=== PATIENT | female | born 1975 | race Caucasian/White ===

== ENCOUNTER 2017-01-03 16:19 | Emergency (ER) | payer OTHER ==
[2017-01-03 16:23] VITALS: TEMP 98.5; BMI 32.8
--- NOTE | 2017-01-03 17:02 | PDOC ---
Attending Attestation - Resident Resident Name: Deshaun Anders - ED Attending Attestation I have performed the following: I have examined & evaluated the patient, The case was reviewed & discussed with the resident, I agree w/resident's findings & plan, Exceptions are as noted - HPI HPI: 01/05/17 02:26 41 yo female p/w headache. she has a h/o headaches - Physicial Exam PE: 01/05/17 02:26 wnwd 41 yo female in no acute distresss, has c/o frontal headache HEENT wnl neck supple lungs cta b/l cvs [id number] abd protuberant,soft neuro axox3,ambulatory cn2-12 grossly intact,motor strength 5/5 - Medical Decision Making 01/05/17 02:28 pt's symptoms resolved and she was referred to neurology
[2017-01-03] MEDS ORDERED: SODIUM CHLORIDE 1,000 ML IV STA (17:30)
[2017-01-03] MEDS ORDERED: diphenhydrAMINE HCL 12.5 MG/5 ML UNIT-DOSE CUPS PO ONE (17:32)
[2017-01-03] MEDS ORDERED: METOCLOPRAMIDE HCL 10 MG TABLET (FP) PO ONE (17:32)
[2017-01-03] MEDS ORDERED: METOCLOPRAMIDE HCL INJECTION 10 MG/2 ML VIAL IVPUSH ONE (17:38)
[2017-01-03] MEDS ORDERED: METOCLOPRAMIDE HCL INJECTION 10 MG/2 ML VIAL ONE (17:47)
[2017-01-03 18:17] LABS: BASOPHIL 0.2 % (0-2.0); EOSINOPHIL 0.4 % (0-4.5); MCH 29.2 pg (25.7-33.7); MCHC 33.9 g/dl (32.0-36.0); MEAN CELL VOLUME 86.1 fl (80-96); NEUTROPHILS 63.6 % (42.8-82.8); PLATELET COUNT 312 K/MM3 (134-434); RDW 13.1 % (11.6-15.6); WHITE BLOOD COUNT 9.4 K/mm3 (4.0-10.0)
[2017-01-03 18:57] LABS: ALBUMIN 3.9 g/dl (3.4-5.0); ANION GAP 12 (8-16); CALCIUM 8.7 mg/dL (8.5-10.1); CO2 25 mmol/L (21-32); CREATININE 0.6 mg/dL (0.55-1.02); GLUCOSE,RANDOM 91 mg/dL (74-106); SGPT/ALT 35 U/L (12-78)
[2017-01-03 18:58] LABS: ALK PHOS 81 U/L (45-117); BILIRUBIN,TOTAL 0.6 mg/dL (0.2-1.0); TOT PROT 7.9 g/dl (6.4-8.2)
[2017-01-03 19:15] LABS: SGOT/AST 34 U/L (15-37)
--- NOTE | 2017-01-03 19:29 | PDOC ---
History of Present Illness - General Chief Complaint: Pain Stated Complaint: NAUSEA/VOMITING Time Seen by Provider: 01/03/17 16:53 - History of Present Illness Initial Comments: 01/03/17 19:29 41 yo F with h/o HTN, Depression, Anxiety, GERD, and migraines, who presents with CHAMBERLAIN. Pt. reports worsening frontal, bi-temporal, pulsating CHAMBERLAIN of 7/10 severity beginning (01/01). CHAMBERLAIN stable throughout day, gradual in onset, similar to CHAMBERLAIN's in past, and not severe at onset. Asx. with scintillating scotomas, and photophobia. She endorses 10 episodes of non bilious and non bloody emesis over past 48 hours. Denies neck stiffness, phonophobia, aura, weakness, sensory change, abdominal pain, constipation, diarrhea, blood per rectum, chest pain, SOB, fevers/chills. Pain not controlled with Tylenol or NSAID, but has been successful in aborting CHAMBERLAIN's in the past. Denies Caffeine use. Past History - Past Medical History Allergies/Adverse Reactions: Allergies Allergy/AdvReac Type Severity Reaction Status Date / Time No Known Allergies Allergy Unverified 01/03/17 16:23 Home Medications: Ambulatory Orders Albuterol Sulfate Inhaler - [Ventolin HFA Inhaler -] 1 - 2 inh PO QID PRN Citalopram Hydrobromide [Citalopram HBr] 10 mg PO DAILY 04/21/15 Clonazepam [Klonopin] 1 mg PO DAILY 04/21/15 Omeprazole [Prilosec (RX)] 40 mg PO DAILY 04/21/15 Quetiapine Fumarate [Seroquel -] 25 mg PO HS 04/21/15 Rizatriptan Benzoate [Rizatriptan] 1 tab PO DAILY 04/21/15 Sertraline HCl [Zoloft -] 100 mg PO DAILY 04/21/15 Anemia: No Asthma: No Cancer: No Cardiac Disorders: No CVA: No COPD: No CHF: No Dementia: No Diabetes: No GI Disorders: Yes (H.PYLORI,GERD,ABDOMINAL PAIN) Disorders: No HTN: No Hypercholesterolemia: No Liver Disease: No Psychiatric Problems: Yes (Anxiety,Depression) Seizures: No Thyroid Disease: No - Surgical History Abdominal Surgery: No Appendectomy: No Cardiac Surgery: No Cholecystectomy: No Lung Surgery: No Neurologic Surgery: No Orthopedic Surgery: No - Suicide/Smoking/Psychosocial Hx Smoking History: Never smoked Information on smoking cessation initiated: No Hx Alcohol Use: No Drug/Substance Use Hx: No Substance Use Type: None Hx Substance Use Treatment: No *Physical Exam - Vital Signs Last Vital Signs Temp Pulse Resp BP Pulse Ox 98.5 F 83 17 128/90 100 01/03/17 16:22 01/03/17 16:22 01/03/17 16:22 01/03/17 16:22 01/03/17 16:22 - Physical Exam Comments: 01/03/17 20:42 GENERAL: Awake, alert, and fully oriented, in no acute distress HEAD: No signs of trauma, normocephalic, atraumatic EYES: PERRLA, EOMI, sclera anicteric, conjunctiva clear ENT: Auricles normal inspection, hearing grossly normal, nares patent, oropharynx clear without exudates. Moist mucosa NECK: Normal ROM, supple, no lymphadenopathy, JVD, or masses LUNGS: No distress, speaks full sentences, clear to auscultation bilaterally HEART: Regular rate and rhythm, normal S1 and S2, no murmurs, rubs or gallops, peripheral pulses normal and equal bilaterally. ABDOMEN: Soft, nontender, normoactive bowel sounds. No guarding, no rebound. No masses EXTREMITIES : Normal inspection, Normal range of motion, no edema. No clubbing or cyanosis. NEUROLOGICAL: Cranial nerves II through XII grossly intact. Normal speech, normal gait, no focal sensorimotor deficits SKIN: Warm, Dry, normal turgor, no rashes or lesions noted. ED Treatment Course - LABORATORY CBC & Chemistry Diagram: 01/03/17 18:10 01/03/17 18:10 - ADDITIONAL ORDERS Additional order review: Laboratory Results 01/03/17 18:10 Sodium 141 Potassium 4.3 Chloride 104 Carbon Dioxide 25 Anion Gap 12 BUN 12 Creatinine 0.6 D Creat Clearance w eGFR > 60 Random Glucose 91 Calcium 8.7 Total Bilirubin 0.6 AST 34 D ALT 35 Alkaline Phosphatase 81 Total Protein 7.9 Albumin 3.9 01/03/17 18:10 RBC 4.83 MCV 86.1 MCHC 33.9 RDW 13.1 MPV 8.0 Neutrophils % 63.6 Lymphocytes % 30.1 Monocytes % 5.7 Eosinophils % 0.4 Basophils % 0.2 - Medications Given in the ED: ED Medications Discontinued Medications Generic Name Dose Route Start Last Admin Trade Name Marcus PRN Reason Stop Dose Admin Diphenhydramine HCl 25 mg 01/03/17 17:32 01/03/17 17:51 Benadryl Oral Solution - PO 01/03/17 17:33 Not Given ONCE ONE Diphenhydramine HCl 25 mg 01/03/17 17:38 01/03/17 17:51 Benadryl Injection - IVPB 01/03/17 17:39 25 mg ONCE ONE Administration Sodium Chloride 1,000 mls @ 1,000 mls/hr 01/03/17 17:30 01/03/17 17:50 Normal Saline - IV 01/03/17 18:29 1,000 mls/hr ASDIR STA Administration Metoclopramide HCl 10 mg 01/03/17 17:32 01/03/17 17:51 Reglan - PO 01/03/17 17:33 Not Given ONCE ONE Metoclopramide HCl 10 mg 01/03/17 17:38 01/03/17 17:51 Reglan Injection - IVPUSH 01/03/17 17:39 10 mg ONCE ONE Administration Medical Decision Making - Medical Decision Making 01/03/17 20:42 41 yo F with h/o HTN, Depression, Anxiety, GERD, and migraines, who presents with worsening frontal, bi-temporal, pulsating CHAMBERLAIN of 7/10 severity beginning ( 01/01). CHAMBERLAIN stable throughout day, gradual in onset, similar to CHAMBERLAIN's in past, and not severe at onset. Asx. with scintillating scotomas, photophobia, and non bilious / non bloody emesis over past 48 hours. Pain refractory to OTC analgesia and physical exam benign. DDx: Migraine without aura, Tension type CHAMBERLAIN, GERD ED Course: CBC, CMP, Lipase Metoclopramide 10 mg IVPB 1 L NS IVPB Diphenhydramine 25 mg IVPB 01/03/17 20:47 CBC, CMP, Lipase: Unremarkable Pt. reassessed and symptoms improved following medication and dark room isolation Pt. counseled on migraine tx. and prevention and told to follow up with Dr. Ridley Neurology outpatient for migraine therapy and prophylaxis. 01/03/17 20:49 *DC/Admit/Observation/Transfer Diagnosis at time of Disposition: Migraine without aura and responsive to treatment - Discharge Dispostion Disposition: HOME Condition at time of disposition: Improved Admit: No - Referrals Referrals: STAFF,NOT ON [Primary Care Provider] - Ilan Ridley DO [Staff Physician] - - Patient Instructions Printed Discharge Instructions: Migraine -- Adult, DI for Migraine, Migraine Headaches (Alternative Therapy) Additional Instructions: Please return to ED if you experience weakness, change in sensation, slurred speech, worsening headache, fevers/chills, or worsening symtpoms. Take over the counter acetaminophen and NSAID as tolerated. Please follow up with Dr. Ridley Neurology this week. Print Language: AUSTRALIAN - Attestations Physician Attestion: 01/03/17 20:06 I attest to the provided information
[2017-01-03 20:17] VITALS: BP 125/75; PULSE 90
== END 2017-01-03 20:27 | disposition home or self-care (01) ==
LOC: JER 16:19
PROC: 3E0337Z Introduction of Electrolytic and Water Balance Substance into Peripheral Vein, Percutaneous Approach (ICD-10-PCS; principal; 2017-01-03)
PROC: 3E033GC Introduction of Other Therapeutic Substance into Peripheral Vein, Percutaneous Approach (ICD-10-PCS; 2017-01-03)
DX: G43.909 Migraine, unspecified, not intractable, without status migrainosus (principal); I10 Essential (primary) hypertension; F41.8 Other specified anxiety disorders; K21.9 Gastro-esophageal reflux disease without esophagitis
CPT/HCPCS: 36415; 80053; 83690; 85025; 96361; 96374; 96375; 99282-25

== ENCOUNTER 2017-07-13 14:17 | Emergency (ER) | payer OTHER ==
--- NOTE | 2017-07-13 14:19 | PDOC ---
Rapid Medical Evaluation Time Seen by Provider: 07/13/17 14:19 Medical Evaluation: Allergies Allergy/AdvReac Type Severity Reaction Status Date / Time No Known Allergies Allergy Verified 07/13/17 14:19 07/13/17 14:19 42 year old female with migraines and depression presents with vomiting, dizziness, and headache since yesterday. No visual or focal neurologic symptoms. Symptoms typical of prior migraines. Normally takes Advil and something else rx, cannot recall name. V/s notable for HR 125 T 99.3 orally, however suspect fever as patient keeps complaining of feeling cold Plan: -Labs including CBC, CMP -UA/urine -IV fluids -CXR -Zofran 4mg IVPB (dry heaving during exam) -Consider rectal temp/sepsis workup -To Main ED for further evaluation
[2017-07-13] MEDS ORDERED: SODIUM CHLORIDE 1,000 ML IV STA (14:22)
[2017-07-13] MEDS ORDERED: ONDANSETRON 4 MG/2 ML VIAL IVPUSH ONE (14:22)
[2017-07-13 14:29] VITALS: BMI 35.2
--- NOTE | 2017-07-13 14:50 | PDOC ---
History of Present Illness - General History Source: Patient Exam Limitations: No Limitations - History of Present Illness Initial Comments: 07/13/17 16:22 The patient is a 42 year old female, with a significant past medical history of GERD, H.pylori, migraines, anxiety, and depression, who presents to the emergency department with abdominal pain, nausea, vomiting, and diarrhea since yesterday evening. The patient reports multiple episodes of (nonbloody/ nonbilious) vomiting since last night and associated diarrhea, but denies any constipation, melena, or hematochezia. She reports associated epigastric abdominal pain, nonradiating, which she rates a 5/10. She reports associated headache and dizziness, but denies any photophobia, tinnitus, recent fever, chills, or cough. She denies any chest pain, shortness of breath, diaphoresis, or palpitations. She denies any recent dysuria, hematuria, frequency, or urgency. She denies any recent travel or sick contacts. Allergies: NKDA Past Surgical History: Bilateral Salpingectomy Social History: Non smoker. No ETOH or recreational drug use. <Ton Montoya - Last Filed: 07/13/17 18:12> <Stefanie Delgado - Last Filed: 07/13/17 18:43> - General Stated Complaint: VOMITING Time Seen by Provider: 07/13/17 14:19 Past History <Ton Montoya - Last Filed: 07/13/17 18:12> - Past Medical History Anemia: No Asthma: No Cancer: No Cardiac Disorders: No CVA: No COPD: No CHF: No Dementia: No Diabetes: No GI Disorders: Yes (H.PYLORI,GERD,ABDOMINAL PAIN) Disorders: No HTN: No Hypercholesterolemia: No Liver Disease: No Psychiatric Problems: Yes (Anxiety,Depression) Seizures: No Thyroid Disease: No - Surgical History Abdominal Surgery: No Appendectomy: No Cardiac Surgery: No Cholecystectomy: No Lung Surgery: No Neurologic Surgery: No Orthopedic Surgery: No - Suicide/Smoking/Psychosocial Hx Smoking History: Never smoked Have you smoked in the past 12 months: No Information on smoking cessation initiated: No Hx Alcohol Use: No Drug/Substance Use Hx: No Substance Use Type: None Hx Substance Use Treatment: No <Stefanie Delgado - Last Filed: 07/13/17 18:43> - Past Medical History Allergies/Adverse Reactions: Allergies Allergy/AdvReac Type Severity Reaction Status Date / Time No Known Allergies Allergy Verified 07/13/17 14:19 Home Medications: Ambulatory Orders Albuterol Sulfate Inhaler - [Ventolin HFA Inhaler -] 1 - 2 inh PO QID PRN Citalopram Hydrobromide [Citalopram HBr] 10 mg PO DAILY 04/21/15 Clonazepam [Klonopin] 1 mg PO DAILY 04/21/15 Omeprazole [Prilosec (RX)] 40 mg PO DAILY 04/21/15 Quetiapine Fumarate [Seroquel -] 25 mg PO HS 04/21/15 Rizatriptan Benzoate [Rizatriptan] 1 tab PO DAILY 04/21/15 Sertraline HCl [Zoloft -] 100 mg PO DAILY 04/21/15 Acetaminophen/Caffeine/Butalb [Fioricet -] 1 tab PO TID PRN #15 tablet MDD 3 05/01 Ondansetron HCl [Zofran] 4 mg PO BID PRN #12 tablet 07/13/17 Review of Systems - Review of Systems Able to Perform ROS?: Yes Comments:: 07/13/17 16:22 GENERAL/CONSTITUTIONAL: No fever or chills. No weakness. HEAD, EYES, EARS, NOSE AND THROAT: No change in vision. No ear pain or discharge. No sore throat. CARDIOVASCULAR: No chest pain or shortness of breath. RESPIRATORY: No cough, wheezing, or hemoptysis. GASTROINTESTINAL: No nausea, vomiting, diarrhea or constipation. GENITOURINARY: No dysuria, frequency, or change in urination. MUSCULOSKELETAL: No joint or muscle swelling or pain. No neck or back pain. SKIN: No rash NEUROLOGIC: No headache, vertigo, loss of consciousness, or change in strength/ sensation. ENDOCRINE: No increased thirst. No abnormal weight change. HEMATOLOGIC/LYMPHATIC: No anemia, easy bleeding, or history of blood clots. ALLERGIC/IMMUNOLOGIC: No hives or skin allergy. <JanGiomilsy - Last Filed: 07/13/17 18:12> *Physical Exam - Vital Signs Last Vital Signs Temp Pulse Resp BP Pulse Ox 99.3 F 125 H 18 107/68 98 07/13/17 14:20 07/13/17 14:20 07/13/17 14:20 07/13/17 14:20 07/13/17 14:20 - Physical Exam Comments: 07/13/17 16:22 GENERAL: The patient is in no acute distress. HEAD: Normal with no signs of trauma. EYES: PERRLA, EOMI, sclera anicteric, conjunctiva clear. ENT: Ears normal, nares patent, oropharynx clear without exudates. Moist mucous membranes. NECK: Normal range of motion, supple without lymphadenopathy, JVD, or masses. LUNGS: Breath sounds equal, clear to auscultation bilaterally. No wheezes, and no crackles. HEART: +Tachycardic. Regular rhythm, normal S1 and S2 without murmur, rub or gallop. ABDOMEN: +Epigastric tenderness. Soft, normoactive bowel sounds. No guarding, no rebound. No masses palpable. EXTREMITIES: Normal range of motion, no edema. No clubbing or cyanosis. No erythema, or tenderness. NEUROLOGICAL: Cranial nerves II through XII grossly intact. Normal speech. No focal neurological deficits. MUSCULOSKELETAL: Back non-tender to palpation, no CVA tenderness SKIN: Warm, Dry, normal turgor, no rashes or lesions noted. <Ton Montoya - Last Filed: 07/13/17 18:12> - Vital Signs Last Vital Signs Temp Pulse Resp BP Pulse Ox 99.3 F 125 H 18 107/68 98 07/13/17 14:20 07/13/17 14:20 07/13/17 14:20 07/13/17 14:20 07/13/17 14:20 <Stefanie Delgado - Last Filed: 07/13/17 18:43> ED Treatment Course - LABORATORY CBC & Chemistry Diagram: 07/13/17 15:13 07/13/17 15:13 - ADDITIONAL ORDERS Additional order review: Laboratory Results 07/13/17 15:13 Urine Color Yellow Urine Appearance Clear Urine pH 5.0 Ur Specific [place] 1.028 Urine Protein Negative Urine Glucose (UA) Negative Urine Ketones Negative Urine Blood 1+ H Urine Nitrite Negative Urine Bilirubin Negative Urine Urobilinogen Negative Ur Leukocyte Esterase Negative Urine WBC (Auto) 1 Urine RBC (Auto) 4 Ur Epithelial Cells Rare Urine Mucus Rare Urine HCG, Qual Negative 07/13/17 15:13 RBC 4.90 MCV 86.1 MCHC 34.2 RDW 13.0 MPV 7.8 Neutrophils % 91.2 H D Lymphocytes % 5.0 L D Monocytes % 3.5 L Eosinophils % 0.0 D Basophils % 0.3 - RADIOLOGY Radiograph Interpretation: 07/13/17 18:12 EXAM: CT Abdomen and Pelvis INTERPRETED BY: Dr. Akhtar REVIEWED BY: Dr. Delgado IMPRESSION: No definite CT findings of acute pathology are noted. 2 cm involuting right ovarian cyst. Diffuse hepatic steatosis. - Medications Given in the ED: ED Medications Discontinued Medications Generic Name Dose Route Start Last Admin Trade Name Freq PRN Reason Stop Dose Admin Sodium Chloride 1,000 mls @ 1,000 mls/hr 07/13/17 14:22 07/13/17 15:00 Normal Saline - IV 07/13/17 15:21 1,000 mls/hr ASDIR STA Administration Ondansetron HCl 4 mg 07/13/17 14:22 07/13/17 15:00 Zofran Injection IVPUSH 07/13/17 14:23 4 mg ONCE ONE Administration <Ton Montoya - Last Filed: 07/13/17 18:12> - LABORATORY CBC & Chemistry Diagram: 07/13/17 15:13 07/13/17 15:13 <Stefanie Delgado - Last Filed: 07/13/17 18:43> Medical Decision Making - Medical Decision Making 07/13/17 17:09 Ms Weldon is a 42 yo F who presents to the ER with a complaint of abdominal pain, nausea, vomiting, diarrhea and headache No recent travel No ill contacts Pt currently has pain, particularly in the epigastrium She does not want me to touch her upper abdoman No lower abd tenderness No involuntary guarding or rebound Will do: Labs CT Zofran given IVF given Pepcid will be added 07/13/17 18:27 Laboratory Tests 07/13/17 07/13/17 07/13/17 15:13 15:13 15:13 WBC 15.3 H D Hgb 14.4 Hct 42.1 Plt Count 299 Neutrophils % 91.2 H D Lymphocytes % 5.0 L D BUN 18 Creatinine 0.8 Urine Blood 1+ H Urine Nitrite Negative Ur Leukocyte Esterase Negative Urine WBC (Auto) 1 Urine RBC (Auto) 4 Urine HCG, Qual Negative CT demonstrates Right involutional cyst Will give Fiorecet Will plan to discharge to home Clinical Impression: migraine headache, repeat presentation gastroenteritis, repeat presentation <Stefanie Delgado - Last Filed: 07/13/17 18:43> *DC/Admit/Observation/Transfer - Attestations Scribe Attestion: 07/13/17 16:23 Documentation prepared by Ton Montoya, acting as medical concierge for Stefanie Delgado MD. <Ton Montoya - Last Filed: 07/13/17 18:12> - Discharge Dispostion Admit: No <Stefanie Delgado - Last Filed: 07/13/17 18:43> Diagnosis at time of Disposition: Migraine without aura and responsive to treatment, Gastroenteritis - Discharge Dispostion Disposition: HOME Condition at time of disposition: Stable - Referrals Referrals: Yahir Porras MD [Staff Physician] - Sherly Arvizu MD [Staff Physician] - - Patient Instructions Printed Discharge Instructions: DI for Migraine, DI for Viral Gastroenteritis - - Adult Additional Instructions: [place] por venir a la swapna de emergencia hoy POR FAVOR orion un seguimiento con el neurlogo Utilice zofran segn sea necesario para las nuseas Regrese a la swapna de emergencias por cualquier otra inquietud o queja Thank you for coming in to the ER today PLEASE follow up with the Neurologist Please use zofran as needed for nausea Return to the ER for any other concerns or complaints
[2017-07-13] MEDS ORDERED: ONDANSETRON 4 MG/2 ML VIAL ONE (14:52)
[2017-07-13 15:18] LABS: BASO % 0.3 % (0-2.0); HEMATOCRIT 42.1 % (32.4-45.2); HEMOGLOBIN 14.4 GM/dL (10.7-15.3); MCH 29.4 pg (25.7-33.7); MCHC 34.2 g/dl (32.0-36.0); MEAN CELL VOLUME 86.1 fl (80-96); MEAN PLT VOLUME 7.8 fl (7.5-11.1); MONO % 3.5 % (3.8-10.2); NEUT % 91.2 % (42.8-82.8); PLATELET COUNT 299 K/MM3 (134-434); WHITE BLOOD COUNT 15.3 K/mm3 (4.0-10.0)
[2017-07-13 15:20] LABS: HCG,QUALITATIVE URINE NEGATIVE
[2017-07-13 15:25] LABS: EPI CELLS RARE /HPF (FEW); URINE APPEARANCE CLEAR; URINE BILIRUBIN NEGATIVE (<2.0 mg/dL); URINE BLOOD 1+ (NEGATIVE); URINE COLOR YELLOW; URINE GLUCOSE (UA) NEGATIVE (NEGATIVE); URINE KETONE NEGATIVE (NEGATIVE); URINE LEUK ESTERASE NEGATIVE (NEGATIVE); URINE MUCUS RARE; URINE NITRITE NEGATIVE (NEGATIVE); URINE PROTEIN NEGATIVE (NEGATIVE); URINE UROBILINOGEN NEGATIVE mg/dL (0.2-1.0)
[2017-07-13 16:13] LABS: ALK PHOS 99 U/L (45-117); ANION GAP 12 (8-16); BILIRUBIN,TOTAL 0.4 mg/dL (0.2-1.0); BLOOD UREA NITROGEN 18 mg/dL (7-18); CALCIUM 8.6 mg/dL (8.5-10.1); CHLORIDE 104 mmol/L (98-107); CO2 22 mmol/L (21-32); CREATININE 0.8 mg/dL (0.55-1.02); GLUCOSE,RANDOM 130 mg/dL (74-106); SGPT/ALT 41 U/L (12-78); SODIUM 138 mmol/L (136-145); TOT PROT 8.3 g/dl (6.4-8.2)
[2017-07-13] MEDS ORDERED: FAMOTIDINE IV 20 MG/12 ML VIAL IVPUSH ONE (16:21)
[2017-07-13] MEDS ORDERED: FAMOTIDINE 20 MG/50 ML IVPB 20 MG/50 ML MG IVPB ONE (16:24)
[2017-07-13 16:36] LABS: POTASSIUM 4.4 mmol/L (3.5-5.1); SGOT/AST 36 U/L (15-37)
[2017-07-13] MEDS ORDERED: ACETAMINOPHEN/CAFFEINE/BUTALBITAL 1 TAB PO ONE (18:27)
[2017-07-13] MEDS ORDERED: ACETAMINOPHEN/CAFFEINE/BUTALBITAL 1 TAB ONE (18:41)
[2017-07-13 19:48] VITALS: BP 110/65; PULSE 98; TEMP 98.1
== END 2017-07-13 18:54 | disposition home or self-care (01) ==
LOC: JER 14:17
PROC: 3E033GC Introduction of Other Therapeutic Substance into Peripheral Vein, Percutaneous Approach (ICD-10-PCS; principal; 2017-07-13)
PROC: 3E0337Z Introduction of Electrolytic and Water Balance Substance into Peripheral Vein, Percutaneous Approach (ICD-10-PCS; 2017-07-13)
DX: G43.109 Migraine with aura, not intractable, without status migrainosus (principal); K52.9 Noninfective gastroenteritis and colitis, unspecified
CPT/HCPCS: 36415; 71046-TC-FY; 74177-TC; 80053; 81003; 81015; 84703; 85025; 96361; 96365; 96375; 99283-25; J7030

== ENCOUNTER 2018-06-26 13:11 | Emergency (ER) | payer OTHER ==
[2018-06-26 13:24] VITALS: BP 108/51; PULSE 93; TEMP 98.2; BMI 33.8
--- NOTE | 2018-06-26 14:31 | PDOC ---
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 Patient reports itching rash to right torso anterior and posterior. Denies pain at site. Timing/Duration: reports: just prior to arrival Severity: Yes: moderate Location: reports: torso Respiratory Risk Factors: reports: no cause identified Associated Symptoms: reports: rash Past History - Travel Traveled outside of the country in the last 30 days: No Close contact w/someone who was outside of country & ill: No - Past Medical History Allergies/Adverse Reactions: Allergies Allergy/AdvReac Type Severity Reaction Status Date / Time No Known Allergies Allergy Verified 06/26/18 13:24 Home Medications: Ambulatory Orders Albuterol Sulfate Inhaler - [Ventolin HFA Inhaler -] 1 - 2 inh PO QID PRN Citalopram Hydrobromide [Citalopram HBr] 10 mg PO DAILY 04/21/15 Clonazepam [Klonopin] 1 mg PO DAILY 04/21/15 Omeprazole [Prilosec (RX)] 40 mg PO DAILY 04/21/15 Quetiapine Fumarate [Seroquel -] 25 mg PO HS 04/21/15 Rizatriptan Benzoate [Rizatriptan] 1 tab PO DAILY 04/21/15 Sertraline HCl [Zoloft -] 100 mg PO DAILY 04/21/15 Acetaminophen/Caffeine/Butalb [Fioricet -] 1 tab PO TID PRN #15 tablet MDD 3 05/01 Ondansetron HCl [Zofran] 4 mg PO BID PRN #12 tablet 07/13/17 Acetaminophen [8Hr Arthritis Pain] 650 mg PO QID #20 tablet.er 06/26/18 Valacyclovir HCl [Valtrex -] 1,000 mg PO TID #21 tablet 06/26/18 Anemia: No Asthma: No Cancer: No Cardiac Disorders: No CVA: No COPD: No CHF: No Dementia: No Diabetes: No GI Disorders: Yes (H.PYLORI,GERD,ABDOMINAL PAIN) Disorders: No HTN: No Hypercholesterolemia: No Liver Disease: No Psychiatric Problems: Yes (Anxiety,Depression) Seizures: No Thyroid Disease: No - Surgical History Abdominal Surgery: No Appendectomy: No Cardiac Surgery: No Cholecystectomy: No Lung Surgery: No Neurologic Surgery: No Orthopedic Surgery: No - Suicide/Smoking/Psychosocial Hx Smoking History: Never smoked Have you smoked in the past 12 months: No Information on smoking cessation initiated: No Hx Alcohol Use: No Drug/Substance Use Hx: No Substance Use Type: None Hx Substance Use Treatment: No Review of Systems - Review of Systems Able to Perform ROS?: Yes Is the patient limited Georgian proficient: No Constitutional: No: Chills, Fever HEENTM: No: Nose Pain, Throat Pain Respiratory: No: Orthopnea, Shortness of Breath, Wheezing Cardiac (ROS): No: Lightheadedness, Palpitations ABD/GI: No: Nausea, Poor Appetite, Indigestion Musculoskeletal: No: Neck Pain Integumentary: No: Erythema Neurological: Yes: Other (Rash to right side of torso anterior and posterior, erythematous patches, no vessicles). No: Headache, Numbness, Weakness *Physical Exam - Vital Signs Last Vital Signs Temp Pulse Resp BP Pulse Ox 98.2 F 93 H 18 108/51 L 98 06/26/18 13:19 06/26/18 13:19 06/26/18 13:19 06/26/18 13:19 06/26/18 13:19 - Physical Exam General Appearance: Yes: Nourished, Appropriately Dressed HEENT: positive: TMs Normal, Pharynx Normal Neck: positive: Supple. negative: Lymphadenopathy (R), Lymphadenopathy (L) Respiratory/Chest: positive: Lungs Clear, Normal Breath Sounds Cardiovascular: positive: Regular Rhythm, Regular Rate Musculoskeletal: negative: CVA Tenderness, CVA Tenderness (L) Extremity: positive: Normal Capillary Refill Integumentary: positive: Other (+ ERYTHEMATOUS patchest to right torso anterior and posterio ) Neurologic: positive: marketing development representative II-XII NML intact, Fully Oriented, Alert Medical Decision Making - Medical Decision Making 06/26/18 14:34 43 year old female presents with CREDIT ANALYST, she has multiple psychiatric disorders presents with rash x 3 days a/p shingles rx: valacyclovir 1gm tid 06/26/18 14:35 *DC/Admit/Observation/Transfer Diagnosis at time of Disposition: Shingles Qualifiers: Herpes zoster complications: without complications Qualified Code(s): B02.9 - Zoster without complications - Discharge Dispostion Disposition: HOME Condition at time of disposition: Good Decision to Admit order: No - Prescriptions Prescriptions: Acetaminophen [8Hr Arthritis Pain] 650 mg PO QID #20 tablet.er Valacyclovir HCl [Valtrex -] 1,000 mg PO TID #21 tablet - Referrals Referrals: Thomas Florian MD [Primary Care Provider] - - Patient Instructions Printed Discharge Instructions: Shingles Additional Instructions: Please do not touch lesions Call primary physician for follow up appointment Return for worsening of symptoms Print Language: LAO - Post Discharge Activity Forms/Work/School Notes: Back to Work
== END 2018-06-26 14:42 | disposition home or self-care (01) ==
LOC: JER 13:11
DX: B02.9 Zoster without complications (principal); F41.8 Other specified anxiety disorders; F32.9 Major depressive disorder, single episode, unspecified; F99 Mental disorder, not otherwise specified
CPT/HCPCS: 99281-25

== ENCOUNTER 2018-07-17 07:37 | Day surgery (SDC) | payer OTHER ==
[2018-06-30 15:09] VITALS: BMI 29.8
[2018-07-17] MEDS ORDERED: MIDAZOLAM HCL 2 MG/2 ML SINGLE DOSE VIAL ONE ×2 (12:00→12:05)
[2018-07-17] MEDS ORDERED: KETOROLAC TROMETHAMINE 30 MG/1 ML VIAL ONE (12:05)
--- NOTE | 2018-07-17 12:39 | OP ---
Operative Note - Note: Operative Date: 07/17/18 Pre-Operative Diagnosis: Left renal stone Operation: Left ESWL Findings: 8 mm lower pole left renal stone Post-Operative Diagnosis: Same as Pre-op Surgeon: Remigio Alexander Anesthesia: Fractional Estimated Blood Loss (mls): 0 Operative Report Dictated: Yes
[2018-07-17] MEDS ORDERED: ONDANSETRON 4 MG/2 ML VIAL IVPUSH PRN (13:34)
[2018-07-17] MEDS ORDERED: oxyCODONE HCL 5 MG TABLET PO PRN ×2 (13:34)
[2018-07-17] MEDS ORDERED: ACETAMINOPHEN 325 MG TABLET (FP) PO PRN (13:34)
[2018-07-17] MEDS ORDERED: ONDANSETRON 4 MG/2 ML VIAL IVPB ONE (13:40)
[2018-07-17] MEDS ORDERED: LACTATED RINGERS SOLUTION 1,000 ML IV SCH (13:45)
[2018-07-17] MEDS ORDERED: ACETAMINOPHEN 325 MG TABLET (FP) ONE (14:18)
[2018-07-17] MEDS ORDERED: ACETAMINOPHEN 325 MG TABLET (FP) PO ONE (14:20)
[2018-07-17 19:13] VITALS: BP 108/70; PULSE 92; TEMP 98
--- NOTE | 2018-07-18 09:45 | OP ---
DATE OF OPERATION: 07/17/2018 PREOPERATIVE DIAGNOSIS: Left renal stone. POSTOPERATIVE DIAGNOSIS: Left renal stone. PROCEDURE PERFORMED: Left extracorporeal shock wave lithotripsy. SURGEON: Remigio Collazo MD ANESTHESIA: Fractional. DESCRIPTION OF PROCEDURE: The patient was brought to the operating room and placed in the supine position on the operating room table. Ultrasonography and fluoroscopy were performed. An 8-mm left lower pole stone was identified. At this point, anesthesia and preoperative antibiotics were administered. Shock wave lithotripsy was then started; 2500 impulses at 17 joules of power were administered to the stone, with excellent fragmentation of the stone under real time ultrasonography and fluoroscopy. The patient tolerated the procedure very well. Portia [id number]
== END 2018-07-17 14:45 | disposition home or self-care (01) ==
LOC: JASU-SURG 07:37
PROVIDERS: ATTEND Urology
PROC: 0TF4XZZ Fragmentation in Left Kidney Pelvis, External Approach (ICD-10-PCS; principal; 2018-07-17 11:00)
DX: N20.0 Calculus of kidney (principal)
CPT/HCPCS: 84703

== ENCOUNTER 2018-09-11 16:54 | Emergency (ER) | payer OTHER ==
--- NOTE | 2018-09-11 17:10 | PDOC ---
Rapid Medical Evaluation Chief Complaint: Chest Pain Time Seen by Provider: 09/11/18 17:04 Medical Evaluation: Allergies Allergy/AdvReac Type Severity Reaction Status Date / Time No Known Allergies Allergy Verified 06/30/18 14:32 09/11/18 17:04 I have performed a brief in-person evaluation of this patient. The patient presents with a chief complaint of: woke up with chestpain, N/V D yesterday- no fevers- sees Psych for depression and anxiety Pertinent physical exam findings: pale, with bilateral ankle edema/ pleuritic CP I have ordered the following: EkG, The patient will proceed to the ED for further evaluation. 09/11/18 17:07 09/11/18 17:09 Discharge Disposition - Diagnosis Chest pain - Referrals - Patient Instructions - Post Discharge Activity
[2018-09-11 17:11] VITALS: BMI 38.0
[2018-09-11] MEDS ORDERED: ACETAMINOPHEN 1000 MG/100 ML VIAL (NON FORMULARY) IVPB ONE (18:15)
[2018-09-11] MEDS ORDERED: ONDANSETRON 4 MG/2 ML VIAL IVPUSH ONE (18:44)
[2018-09-11] MEDS ORDERED: SODIUM CHLORIDE 1,000 ML IV STA (18:44)
[2018-09-11] MEDS ORDERED: FAMOTIDINE 20 MG/50 ML IVPB 20 MG/50 ML MG IVPB ONE ×4 (18:44→20:44)
--- NOTE | 2018-09-11 18:49 | PDOC ---
Documentation entered by Bret Yusuf SCRIBE, acting as scribe for Ilda Boston MD. Ilda Boston MD: This documentation has been prepared by the Paramjit moncada Daniel, SCRIBE, under my direction and personally reviewed by me in its entirety. I confirm that the documentation accurately reflects all work, treatment, procedures, and medical decision making performed by me. Attending Attestation - Resident Resident Name: Deanna Nelson - ED Attending Attestation I have performed the following: I have examined & evaluated the patient, The case was reviewed & discussed with the resident, I agree w/resident's findings & plan, Exceptions are as noted - HPI HPI: 09/11/18 18:56 The patient is a 43 year old female with a past medical history of anxiety, depression, migraines, H. pylori, and left sided nephrolithiasis here today for evaluation of chest pressure. The patient reports that she had symptoms of nausea, vomiting, and diarrhea after eating chicken fingers and fries. She states that it felt like her reflux but got worse throughout the day. She reports waking up today around 3 AM with substernal chest pressure. Patient denies headache, lightheadedness. Denies fever, chills. Denies shortness of breath. Denies abdominal pain. Denies sick contacts. Allergies: NKA PCP: Thomas Florian - Physicial Exam PE: 09/11/18 23:14 wnwd 43 yo female in no acute distress head ncat neck supple lungs cta b/l cvs [id number] abd no rebound,no guarding no flank tenderness skin warm and dry neuro axox3,ambulatory psych appropriate - Medical Decision Making 09/11/18 18:52 43 yo female has nausea,vomiting and diarrhea all day Tuesday and then this morning at 3 am had chest pain PMH GERD,H Pylori,migraines, kidney stones PSH lithotripsy pt has stable VS, afebrile ekg is nsr with no evidence of ischemia 09/11/18 23:19 pt has 2 negative cardiac enzymes and was d/c home she had no further nausea ,vomiting
[2018-09-11 18:57] LABS: BASO % 0.2 % (0-2.0); EOS % 1.6 % (0-4.5); HEMATOCRIT 36.5 % (32.4-45.2); HEMOGLOBIN 12.2 GM/dL (10.7-15.3); LYMPH % 26.7 % (8-40); MCH 27.2 pg (25.7-33.7); MCHC 33.4 g/dl (32.0-36.0); MEAN CELL VOLUME 81.3 fl (80-96); MEAN PLT VOLUME 7.7 fl (7.5-11.1); MONO % 12.7 % (3.8-10.2); NEUT % 58.8 % (42.8-82.8); PLATELET COUNT 299 K/MM3 (134-434); RBC 4.48 M/mm3 (3.60-5.2); WHITE BLOOD COUNT 8.2 K/mm3 (4.0-10.0)
--- NOTE | 2018-09-11 19:06 | PDOC ---
History of Present Illness - General Chief Complaint: Chest Pain Stated Complaint: DIZZINESS/PAIN Time Seen by Provider: 09/11/18 17:04 History Source: Patient Exam Limitations: No Limitations - History of Present Illness Initial Comments: Pt is a 43 yo F, with PMH of GERD (H pylori positive), migraines, anxiety, depression, and L nephrolithiasis (s/p ESWL), who is presenting with complaints of mid-sternal chest discomfort since 3am today, after having multiple episodes of NBNB nausea/vomiting and diarrhea yesterday. Pt states the discomfort is intermittent, and feels similar to her indigestion, which improved with her home dose of nexium. Pt states the pain is worse "when pushing on her chest" and her indigestion is worsened by lying flat. Pt was able to eat chicken fingers and fries today. Pt has had no further episodes of n/v/d, but the chest discomfort was persistent so she came to the ER for evaluation. Pt denies any fevers/chills, headache, vision changes, syncope, hematemesis, palpitations, SOB , urinary symptoms, constipation, or leg swelling. Allergies: NKDA PCP: Dr. Florian GI: unknown, pt had endoscopy "a few months ago" which was normal. Social: Pt denies any cigarette, alcohol, or drug use. Pt denies any recent travel or sick contacts. Surgical: L ESWL. Family: no relevant history. 09/11/18 20:20 Past History - Travel Traveled outside of the country in the last 30 days: No Close contact w/someone who was outside of country & ill: No - Past Medical History Allergies/Adverse Reactions: Allergies Allergy/AdvReac Type Severity Reaction Status Date / Time No Known Allergies Allergy Verified 09/11/18 17:10 Home Medications: Ambulatory Orders Albuterol Sulfate Inhaler - [Ventolin HFA Inhaler -] 1 - 2 inh PO QID PRN Citalopram Hydrobromide [Citalopram HBr] 10 mg PO DAILY 04/21/15 Clonazepam [Klonopin] 1 mg PO DAILY 04/21/15 Quetiapine Fumarate [Seroquel -] 25 mg PO HS 04/21/15 Rizatriptan Benzoate [Rizatriptan] 1 tab PO DAILY 04/21/15 Sertraline HCl [Zoloft -] 100 mg PO DAILY 04/21/15 Acetaminophen/Caffeine/Butalb [Fioricet -] 1 tab PO TID PRN #15 tablet MDD 3 05/01 Calcium Carbonate [Tums] 200 mg PO PRN 07/17/18 Esomeprazole Magnesium [Nexium 24Hr] 20 mg PO DAILY 07/17/18 Anemia: No Asthma: No Cancer: No Cardiac Disorders: No CVA: No COPD: No CHF: No Dementia: No Diabetes: No GI Disorders: Yes (H.PYLORI,GERD,ABDOMINAL PAIN) Disorders: Yes (kidney stones) HTN: No Hypercholesterolemia: No Liver Disease: No Psychiatric Problems: Yes (ANXIETY, DEPRESSION) Seizures: No Thyroid Disease: No Other medical history: MIGRAINES - Surgical History Abdominal Surgery: No Appendectomy: No Cardiac Surgery: No Cholecystectomy: No Lung Surgery: No Neurologic Surgery: No Orthopedic Surgery: No - Suicide/Smoking/Psychosocial Hx Smoking History: Never smoked Have you smoked in the past 12 months: No Hx Alcohol Use: No Drug/Substance Use Hx: No Substance Use Type: None Hx Substance Use Treatment: No Review of Systems - Review of Systems Able to Perform ROS?: Yes Is the patient limited [place] proficient: No Constitutional: Yes: Loss of Appetite, Weight Stable. No: Chills, Diaphoresis, Fever, Malaise, Weakness HEENTM: No: Double Vision, Throat Swelling, Difficulty Swallowing Respiratory: No: Cough, Orthopnea, Shortness of Breath, Stridor, Hemoptysis Cardiac (ROS): Yes: Chest Pain, Chest Tightness. No: Edema, Irregular Heart Rate, Lightheadedness, Palpitations, Syncope ABD/GI: Yes: Diarrhea, Nausea, Poor Appetite, Poor Fluid Intake, Vomiting, Indigestion. No: Blood Streaked Bowels, Constipated, Abdominal cramping : No: Burning, Dysuria, Frequency, Hematuria, Pain, Urgency Musculoskeletal: No: Back Pain, Joint Pain (chronic pain L knee and L ankle), Muscle Weakness Integumentary: No: Rash Neurological: No: Headache, Numbness, Seizure, Weakness, Ataxia, Dizziness Psychiatric: No: Sleep Pattern Change, Change in Appetite Endocrine: No: Change in Weight Hematologic/Lymphatic: No: Anemia, Blood Clots, Easy Bleeding, Easy Bruising All Other Systems: Reviewed and Negative *Physical Exam - Vital Signs Last Vital Signs Temp Pulse Resp BP Pulse Ox 98.1 F 93 H 16 126/52 L 98 09/11/18 17:04 09/11/18 17:04 09/11/18 17:04 09/11/18 17:04 09/11/18 17:04 - Physical Exam Comments: Vitals stable, pt afebrile. Pt in NAD, obese body habitus. Pt alert and oriented x3. full roll inspector generally intact, muscular strength and sensation intact. No midline spinal tenderness, step-offs, or crepitus. Head normocephalic, atraumatic. Eyes PERRLA, EOMI. Oropharynx without erythema or exudates, no LAD b/l. No nasal congestion, hearing intact. Clear heart sounds, S1/S2, no JVD, b/l pedal edema, or heart murmur. Reproducible chest tenerness over anterior chest wall. No crepitus noted. Clear lung sounds, no respiratory distress, wheezes, crackles, or accessory muscle use. Mild epigastric TTP, no rebound, no guarding. Abdomen soft, non-distended, and with normoactive bowel sounds. Skin without jaundice or rash. 09/11/18 20:12 ED Treatment Course - LABORATORY CBC & Chemistry Diagram: 09/11/18 18:45 09/11/18 18:45 - ADDITIONAL ORDERS Additional order review: 09/11/18 18:45 RBC 4.48 MCV 81.3 MCHC 33.4 RDW 14.0 MPV 7.7 Neutrophils % 58.8 D Lymphocytes % 26.7 D Monocytes % 12.7 H D Eosinophils % 1.6 D Basophils % 0.2 - RADIOLOGY Radiology Studies Ordered: Category Date Time Status CHEST X-RAY PORTABLE* [RAD] Stat Radiology 09/11/18 18:14 Taken Medical Decision Making - Medical Decision Making Pt was seen at bedside, also will be seen by attending Dr. Boston. Pt presenting with complaints of mid-sternal chest discomfort since 3am today, after having multiple episodes of NBNB nausea/vomiting and diarrhea yesterday. Pt states the discomfort is intermittent, and feels similar to her indigestion, which improved with her home dose of nexium. Pt states the pain is worse "when pushing on her chest" and her indigestion is worsened by lying flat. Pt was able to eat chicken fingers and fries today. Pt has had no further episodes of n /v/d, but the chest discomfort was persistent so she came to the ER for evaluation. Pt denies any fevers/chills, headache, vision changes, syncope, hematemesis, palpitations, SOB, urinary symptoms, constipation, or leg swelling. Considering indigestion vs gastritis vs perforated ulcer/boeerhave vs ACS. Ordered work-up including CBC, CMP, coags, cardiac profile, chest x-ray. Will obtain troponin x2, likely dispo to home. Provided 4 mg IV zofran, 20 mg IV pepcid, 1 g ofirmev, and 1 L IV NS for improvement of nausea/indigestion. Will continue to reassess pt and monitor for symptomatic improvement. ECG: NSR, LAD, intervals WNL (HR 89, IN 158, QRS 90, QTc 469). TWI in III and aVF, no significant ST segment changes or reciprocal changes. No prior ECG for comparison. Pt was provided 750 mg PO levaquin instead of 20 mg IV pepcid. 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 Medication was stopped, no adverse effect noted. Will obtain repeat EKG to ensure no QTc prolongation. Pt continues to complain of indigestion, will provide 20 mg IV pepcid and 25 mg IV benadryl. 09/11/18 20:14 Pending trop x2 @9:45 pm. chest x-ray shows no acute pathology/free air. 09/11/18 20:21 Second troponin negative. Pt states nausea and chest pressure improved after interventions. Considering normal lab results and imaging, pt can be discharged to home with follow-up. Pt advised to follow-up with PCP in 1-2 days and has been referred to GI (Dr. Newell). Strict return precautions provided with pt understanding. 09/11/18 23:08 *DC/Admit/Observation/Transfer Diagnosis at time of Disposition: Atypical chest pain - Discharge Dispostion Disposition: HOME Condition at time of disposition: Improved Decision to Admit order: No - Referrals Referrals: Thomas Florian MD [Primary Care Provider] - Christian Newell MD [Staff Physician] - - Patient Instructions Printed Discharge Instructions: DI for Atypical Chest Pain Additional Instructions: You were seen in the ER today for nausea and indigestion. The results of your labs and imaging today were normal. Please follow-up with your primary care doctor and GI (Dr. Newell) within 1-2 days to discuss your visit and make sure your symptoms have improved. Please return to the ER if you have any worsening pain, development of fevers or chills, loss of consciousness, inability to tolerate food or fluids, or any other concerns. - Post Discharge Activity
[2018-09-11 19:15] LABS: INR 1.08 (0.83-1.09); PROTHROMBIN TIME (PATIENT) 12.7 SEC (9.7-13.0)
[2018-09-11] MEDS ORDERED: ONDANSETRON 4 MG/2 ML VIAL ONE (19:23)
[2018-09-11 19:29] LABS: ALBUMIN 3.3 g/dl (3.4-5.0); ALK PHOS 84 U/L (45-117); ANION GAP 6 MMOL/L (8-16); BILIRUBIN,TOTAL 0.2 mg/dL (0.2-1); BLOOD UREA NITROGEN 7.6 mg/dL (7-18); CALCIUM 8.1 mg/dL (8.5-10.1); CHLORIDE 108 mmol/L (98-107); CO2 26 mmol/L (21-32); CREATININE 0.8 mg/dL (0.55-1.3); GLUCOSE,RANDOM 115 mg/dL (74-106); LIPASE 140 U/L (73-393); MAGNESIUM 2.4 mg/dL (1.8-2.4); POTASSIUM 4.1 mmol/L (3.5-5.1); SGOT/AST 23 U/L (15-37); SGPT/ALT 25 U/L (13-61); SODIUM 140 mmol/L (136-145); TOT PROT 7.4 g/dl (6.4-8.2)
[2018-09-11 19:46] LABS: EPI CELLS 0.1 /HPF (0-5/HPF); HYALINE CASTS 0 /lpf (0-8); URINE APPEARANCE CLEAR; URINE BACTERIA 4.1 /hpf (NEGATIVE); URINE BILIRUBIN NEGATIVE (NEGATIVE); URINE COLOR YELLOW; URINE GLUCOSE (UA) NEGATIVE (NEGATIVE); URINE KETONE NEGATIVE (NEGATIVE); URINE LEUK ESTERASE NEGATIVE (NEGATIVE); URINE NITRITE NEGATIVE (NEGATIVE); URINE PROTEIN NEGATIVE (NEGATIVE); URINE RBC 4 /hpf (0-4); URINE UROBILINOGEN 0.2 mg/dL (0.2-1.0); URINE WBC 0 /hpf (0-5)
[2018-09-11 23:30] VITALS: BP 102/51; PULSE 93; TEMP 99.3
--- NOTE | 2018-09-12 14:49 | EKG ---
Test Reason : Blood Pressure : / mmHG Vent. Rate : 089 BPM Atrial Rate : 089 BPM P-R Int : 158 ms QRS Dur : 090 ms QT Int : 386 ms P-R-T Axes : 035 -33 019 degrees QTc Int : 469 ms NORMAL SINUS RHYTHM LEFT AXIS DEVIATION ABNORMAL ECG NO PREVIOUS ECGS AVAILABLE Confirmed by MD CHARITY, ELBA ([id number]) on 09/12/2018 2:49:12 PM Referred By: Confirmed By:ELBA NASH MD
== END 2018-09-11 23:30 | disposition home or self-care (01) ==
LOC: JER 16:54
DX: R07.9 Chest pain, unspecified (principal); F41.9 Anxiety disorder, unspecified; F32.9 Major depressive disorder, single episode, unspecified; G43.909 Migraine, unspecified, not intractable, without status migrainosus; Z87.442 Personal history of urinary calculi
CPT/HCPCS: 36415; 71045-TC-FY; 80053; 81003; 82550; 82553; 83690; 83735; 84484; 85025; 85610; 87086; 93005; 93010; 99284-25; J0131; J7030

== ENCOUNTER 2018-11-08 11:48 | Emergency (ER) | payer OTHER ==
[2018-11-08 11:54] VITALS: BP 101/53; PULSE 84; TEMP 98.1; BMI 37.3
--- NOTE | 2018-11-08 12:14 | PDOC ---
History of Present Illness - General Chief Complaint: Bite Stated Complaint: RASH Time Seen by Provider: 11/08/18 12:00 - History of Present Illness Initial Comments: 11/08/18 12:12 43-year-old female with stents of psych history presents for evaluation of itching which started last night. No systemic symptoms. Past History - Past Medical History Allergies/Adverse Reactions: Allergies Allergy/AdvReac Type Severity Reaction Status Date / Time No Known Allergies Allergy Verified 11/08/18 11:54 Home Medications: Ambulatory Orders Albuterol Sulfate Inhaler - [Ventolin HFA Inhaler -] 1 - 2 inh PO QID PRN Citalopram Hydrobromide [Citalopram HBr] 10 mg PO DAILY 04/21/15 Clonazepam [Klonopin] 1 mg PO DAILY 04/21/15 Quetiapine Fumarate [Seroquel -] 25 mg PO HS 04/21/15 Rizatriptan Benzoate [Rizatriptan] 1 tab PO DAILY 04/21/15 Sertraline HCl [Zoloft -] 100 mg PO DAILY 04/21/15 Acetaminophen/Caffeine/Butalb [Fioricet -] 1 tab PO TID PRN #15 tablet MDD 3 05/01 Calcium Carbonate [Tums] 200 mg PO PRN 07/17/18 Esomeprazole Magnesium [Nexium 24Hr] 20 mg PO DAILY 07/17/18 Anemia: No Asthma: No Cancer: No Cardiac Disorders: No CVA: No COPD: No CHF: No Dementia: No Diabetes: No GI Disorders: Yes (H.PYLORI,GERD,ABDOMINAL PAIN) Disorders: Yes (kidney stones) HTN: No Hypercholesterolemia: No Liver Disease: No Psychiatric Problems: Yes (ANXIETY, DEPRESSION) Seizures: No Thyroid Disease: No Other medical history: carpal tunnel, migraines - Surgical History Abdominal Surgery: No Appendectomy: No Cardiac Surgery: No Cholecystectomy: No Lung Surgery: No Neurologic Surgery: No Orthopedic Surgery: No - Suicide/Smoking/Psychosocial Hx Smoking History: Never smoked Have you smoked in the past 12 months: No Hx Alcohol Use: No Drug/Substance Use Hx: No Substance Use Type: None Hx Substance Use Treatment: No Review of Systems - Review of Systems Constitutional: No: Fever Integumentary: Yes: Pruritus, Rash *Physical Exam - Vital Signs Last Vital Signs Temp Pulse Resp BP Pulse Ox 98.1 F 84 18 101/53 L 98 11/08/18 11:52 11/08/18 11:52 11/08/18 11:52 11/08/18 11:52 11/08/18 11:52 - Physical Exam Comments: 11/08/18 12:13 There is a raised wheal on the posterior aspect of the left lower leg there is normal surrounding skin color and temperature. Medical Decision Making - Medical Decision Making 11/08/18 12:13 This is a bug bite no indication of secondary infection follow-up with dermatology *DC/Admit/Observation/Transfer Diagnosis at time of Disposition: Bug bite - Discharge Dispostion Disposition: HOME Condition at time of disposition: Stable Decision to Admit order: No - Referrals Referrals: Thomas Florian MD [Primary Care Provider] - - Patient Instructions Additional Instructions: Topical Benadryl for itching. Follow-up with dermatology in 1-2 days for further evaluation and treatment options and return to the emergency room for worsening symptoms. - Post Discharge Activity
== END 2018-11-08 12:18 | disposition home or self-care (01) ==
LOC: JERFT 11:48
DX: S80.862A Insect bite (nonvenomous), left lower leg, initial encounter (principal); Y93.9 Activity, unspecified; Y92.9 Unspecified place or not applicable
CPT/HCPCS: 99281-25

== ENCOUNTER 2019-05-07 10:05 | Day surgery (SDC) | payer OTHER ==
[2019-05-07 11:08] VITALS: TEMP 98.4
[2019-05-07 11:30] VITALS: BMI 36.9
[2019-05-07] MEDS ORDERED: MIDAZOLAM HCL 2 MG/2 ML SINGLE DOSE VIAL ONE (12:11)
[2019-05-07] MEDS ORDERED: KETOROLAC TROMETHAMINE 30 MG/1 ML VIAL ONE (12:41)
--- NOTE | 2019-05-07 12:55 | OP ---
Operative Note - Note: Operative Date: 05/07/19 Pre-Operative Diagnosis: Left renal stone Operation: Left ESWL Findings: 6 mm mid pole left renal stone Post-Operative Diagnosis: Same as Pre-op Surgeon: Remigio Alexander Anesthesia: Fractional Estimated Blood Loss (mls): 0 Drains, Volume Out (mls): 0 Operative Report Dictated: Yes
[2019-05-07] MEDS ORDERED: ONDANSETRON 4 MG/2 ML VIAL IVPUSH ONE (13:07)
[2019-05-07] MEDS ORDERED: ONDANSETRON 4 MG/2 ML VIAL ONE (13:11)
[2019-05-07] MEDS ORDERED: ONDANSETRON 4 MG/2 ML VIAL IVPB ONE (13:15)
[2019-05-07 14:27] VITALS: BP 127/71; PULSE 96
--- NOTE | 2019-05-07 19:54 | OP ---
DATE OF OPERATION: 05/07/2019 PREOPERATIVE DIAGNOSIS: Left renal stone. POSTOPERATIVE DIAGNOSIS: Left renal stone. PROCEDURE: Left extracorporeal shock wave lithotripsy. ATTENDING: Jarrod Don MD ANESTHESIA: Fractional. DESCRIPTION OF OPERATION: Patient was brought in the operating room, placed in supine position on the operating room table. Ultrasonography and fluoroscopy were performed. A 6-mm left mid-pole stone was identified. Anesthesia and preoperative antibiotics were then administered. Extracorporeal shock wave lithotripsy was then performed. Excellent fragmentation of the stone was noted under real-time ultrasonography and fluoroscopy. No complications were noted. The patient tolerated the procedure very well. JARROD DON M.D. /[id number]
== END 2019-05-07 14:27 | disposition home or self-care (01) ==
LOC: JASU-SURG 10:05
PROVIDERS: ATTEND Urology
PROC: 0TF4XZZ Fragmentation in Left Kidney Pelvis, External Approach (ICD-10-PCS; principal; 2019-05-07 12:30)
DX: N20.0 Calculus of kidney (principal)
CPT/HCPCS: 84703

== ENCOUNTER → 2020-01-03 | Day surgery (SDC) | payer OTHER ==
--- OUTSIDE RECORDS SUMMARY | 2020-01-03 10:27 | XMS ---
:1975 Author Organization [facility] Care Team Providers Name Role Phone [facility], SJ9 Unavailable Unavailable Menla, Shilpi Unavailable Unavailable Menla, Shilpi Unavailable Unavailable Menla, Shilpi Unavailable Unavailable Menla, Shilpi Unavailable Unavailable Menla, Shilpi Unavailable Unavailable Menla, Shilpi Unavailable Unavailable [facility], STJ9 Unavailable Unavailable ZUNASSIGNED Unavailable Unavailable MENLA SHILPI, SHILPI Unavailable Unavailable Burnham, Francisca Unavailable Unavailable Burnham, Francisca Unavailable Unavailable Burnham, Francisca Unavailable Unavailable Burnham, Francisca Unavailable Unavailable [email or web address]@,, [id number] Unavailable Unavailable Re-disclosure Warning The records that you are about to access may contain information from federally- assisted alcohol or drug abuse programs. If such information is present, then the following federally mandated warning applies: This information has been disclosed to you from records protected by federal confidentiality rules (42 CFR part 2). The federal rules prohibit you from making any further disclosure of this information unless further disclosure is expressly permitted by the written consent of the person to whom it pertains or as otherwise permitted by 42 CFR part 2. A general authorization for the release of medical or other information is NOT sufficient for this purpose. The Federal rules restrict any use of the information to criminally investigate or prosecute any alcohol or drug abuse patient.The records that you are about to access may contain highly sensitive health information, the redisclosure of which is protected by Article 27-F of the [place] State Public Health law. If you continue you may haveaccess to information: Regarding HIV / AIDS; Provided by facilities licensed or operated by the [facility] Office of Mental Health; or Provided by the [facility] Office for People With Developmental Disabilities. If such information is present, then the following [facility] mandated warning applies: This information has been disclosed to you from confidential records which are protected by state law. State law prohibits you from making any further disclosure of this information without the specific written consent of the person to whom it pertains, or as otherwise permitted by law. Any unauthorized further disclosure in violation of state law may result in a fine or alf sentence or both. A general authorization for the release of medical or other information is NOT sufficient authorization for further disclosure. Family History Family Member Family Member Family Member Date of Description Data Source(s) Name Gender Status Status Unknown Female Problem 12/04/2012 [facility] [facility] 12:00:00 AM [facility] al EDT Center) Encounters Encounter Providers Location Date Indications Data Source(s ) [facility]: [facility] Med ical Center ZUNASSIGNEDReferrer: EDT [id number] [email or web address]@, Outpatient Att[facility]: [facility]2020 [facility]errer: EDT [id number] ZUNASSIGNED@, Outpatient Att[facility]: [facility] 12[facility]00 PM Med ical [place] ZUNASSIGNEDReferrer: EDT [id number] ZUNASSIGNED@, Outpatient Attender: SHILPI Coronado 12/25/2019 Dariel BULLdmitter: SHILPI 10:14:00 AM Medic al Center FRANCOIS Reynar: EDT SHILPI DOBBINS Outpatient Att[facility]: [facility]2019 [facility] 12:[facility]:00 AM Med ical Center ZUNASSIGNEDReferrer: EDT - [id number] ZUNASSIGNED@, 12/01/2012 12:00:00 AM EDT Outpatient Attender: [facility]2019 [facility] 02:30:00 PM Med ical Center ZUNASSIGNEDReferrer: EDT [id number] ZUNASSIGNED@, Outpatient Attender: SHILPI Coronado 12/18/2019 Dariel Henry MIKEAdmitter: SHILPI 10:21:00 AM Medic al Center FRANCOIS Reynar: EDT SHILPI DOBBINS Outpatient Admitter: [id number] 12/18/2019 [facility] ZUNASSIGNED@,Referre 12:00:00 AM Med ica Center r: [id number] EDT ZUNASSIGNED@, Outpatient Attender: STJ9 [facility] 12/17/2019 [facility] (Community 06:09:33 [facility] Collaborative) Patient admitted. Outpatient 12/07/2019 03:54:00 [facility] Outpatient Attender: SHILPI Coronado 12/07/2019 10:19:00 S [facility] MIKEAdmitter: SHILPI Ramsayrer: SHILPI DOBBINS OutpatientOFFICE/OUT Attender: Francisca [address] [place] [address] 12/07/2019 10:19:00 NEXTGEN ([facility] PATIENT VISIT, [facility] AM EDT - 12/07/2019 [facility] 10:19:00 AM EDT Center) Outpatient 12/07/2019 12:00:00 [facility] Outpatient 12/05/2019 03:58:00 [facility] Outpatient 12/05/2019 03:51:00 [facility] Outpatient 12/05/2019 03:50:00 [facility] Outpatient 12/05/2019 12:00:00 [facility] Attender: Francisca 11/21/2019 03:45:00 NEXTGEN ([facility] PM EDT - 11/21/2019 [facility] 03:45:00 PM EDT Center) Outpatient 11/21/2019 02:35:00 [facility] Outpatient Attender: SHILPI Coronado 11/21/2019 02:26:[address] [facility] MIKEAdmitter: SHILPI Ozunaferrer: SHILPI DOBBINS OutpatientOFFICE/OUT Attender: Francisca [facility] 11/21/2019 02:26:00 NEXTGEN ([facility] PATIENT VISIT, EST [place] PM EDT - 11/21/2019 [facility] 02:26:00 PM EDT Center) Outpatient 11/21/2019 [facility] Attender: SJ9 11/15/2019 12:02:59 GSI ([facility]) Patient admitted. Outpatient Attender: SHILPI Coronado 10/24/2019 Dariel BULLdmitter: SHILPI 11:32:00 AM EDT edical Center FRANCOIS Reynar: SHILPI DOBBINS OutpatientWell Visit, Attender: Francisca [facility] 10/24/2019 NEXTGEN ([facility] Est,40-64years [place] 11:32:00 AM EDT - J osephs 10/24/2019 Medical 11:32:00 AM EDT Center) Outpatient 10/23/2019 [facility] 09:55:00 AM EDT Medical C enter Outpatient 10/23/2019 [facility] 12:00:00 AM EDT Medical C enter Attender: Shilpi Florain [facility] 10/16/2019 NEXT GEN ([facility] 03:49:00 PM EDT [facility] 10/16/2019 Medical 03:49:00 PM EDT Center) Outpatient Attender: SJ9 10/15/2019 GSI ([facility] 11:42:54 AM T [facility]) Patient admitted. Outpatient Attender: SJ9 [facility] 10/15/2019 11:41:57 [facility] Patient admitted. Outpatient Attender: STJ9 [facility] 10/13/2019 01:13:09 PM GSI ([facility] EDT [facility]) Patient admitted. Outpatient 10/08/2019 12:59:00 [facility] EDT Medical Center Outpatient 10/08/2019 [facility]:00[facility] 08/22/2019 02:06:00 [facility] EDT Medical Center Outpatient Attender: SHILPI Coronado 08/22/2019 11:18:00 [facility] MIKEAdmitter: SHILPI Whitley: SHILPI DOBBINS OutpatientOFFICE/OUT Attender: Francisca [facility] 08/22/2019 11:18:00 NEXTGEN ([facility] PATIENT VISIT, EST [place] AM EDT - 08/22/2019 [facility] 11:18:00 AM EDT Center) Outpatient 08/22/2019 12:00:00 [facility] Outpatient Attender: SHILPI Coronado 08/13/2019 10:49:[address] [facility] [place] MIKEAdmitter: SHILPI Ramsayrer: SHILPI DOBBINS OutpatientOFFICE/OUT Attender: Francisca [address] [place] [address] 08/13/2019 10:49:00 NEXTGEN ([facility] PATIENT VISIT, EST [place] AM EDT - 08/13/2019 [facility] 10:49:00 AM EDT Center) Outpatient 08/13/2019 10:48:00 [facility] Outpatient 08/13/2019 12:00:00 [facility] Attender: Shilpi [address] [place] [address] 07/16/2019 03:06:00 N EXTGEN ([facility] PM EDT - 07/16/2019 [facility] 03:06:00 PM EDT Center) Outpatient Attender: STJ9 06/01/2019 07:16:21 G SI ([facility]) Patient admitted. Attender: Shilpi [facility] 05/14/2019 NEXTGEN (S aint [facility] 11:26:00 AM [facility] 05/14/2019 [place]) 11:26:00 AM EST Attender: Shilpi [facility] 05/07/2019 NEXTGEN (S [facility]int [place] 04:19:00 PM [facility] 05/07/2019 [place]) 04:19:00 PM EST Attender: Shilpi [address] [facility] 05/01/2019 NEXTGEN (S aint [place] 02:13:00 PM [facility] 05/01/2019 [place]) 02:13:00 PM EST Outpatient Attender: SHILPI Coronado 04/26/2019 [facility] MENLA 11:34:00 AM EST Medical C enter MIKEAdmitter: SHILPI Ramsayrer: SHILPI DOBBINS OutpatientOFFICE/O Attender: Francisca [address] [place] [address] 04/26/2019 N EXTGEN ([facility], [place] 11:34:00 AM EST - J [facility] Medical EST 04/26/2019 [place]) 11:34:00 AM EST Outpatient 04/26/2019 [facility] 12:00:00 AM EST Medical C enter Outpatient 04/24/2019 [facility] 02:19:00 PM EST Medical C enter Outpatient 04/24/2019 [facility] 12:00:00 AM EST Medical C enter Outpatient Attender: SHILPI Coronado 04/18/2019 [facility] 03:26:00 PM EST Medical C enter MIKEAdmitter: SHILPI Reynar: SHILPI DOBBINS OutpatientOFFICE/O Attender: Shilpi [facility] 04/18/2019 TOMY BRAGG ([facility] VISIT, Men[facility] 03:26:00 PM EST - J [facility] Medical EST 04/18/2019 [place]) 03:26:00 PM EST Outpatient 04/18/2019 [facility] 03:07:00 PM EST Medical C enter Outpatient 04/18/2019 [facility] 12:00:00 AM EST Medical C enter Outpatient 04/12/2019 [facility] 01:18:00 PM EST Medical C enter Outpatient 04/12/2019 [facility] 12:00:00 AM EST Medical C enter Attender: Shilpi [address] [place] [address] 04/10/2019 GIBSON (Stephy ozuna [facility] 04:44:00 PM [facility] 04/10/2019 [place]) 04:44:00 PM EST Outpatient 04/10/2019 [facility] 02:53:00 PM EST Medical C enter Outpatient 04/10/2019 [facility] 12:00:00 AM EST Medical C enter Attender: Francisca 03/30/2019 NEXTGEN ( [facility] 10:10:00 AM [facility] 03/30/2019 [place]) 10:10:00 AM EST Attender: Francisca 03/30/2019 NEXTGEN ( [facility] 10:10:00 AM [facility] 03/30/2019 [place]) 10:10:00 AM EST Outpatient Attender: SHILPI Coronado 03/29/2019 [facility] 12:21:00 PM EST Medical C enter MIKEAdmitter: SHILPI Ramsayrer: SHILPI DOBBINS OutpatientOFFICE/O Attender: Francisca[address] 03/29/2019 N EXTGEN [facility] 12:21:00 PM EST - J osep Medical EST 03/29/2019 [place]) 12:21:00 PM EST Outpatient 03/29/2019 [facility] 11:07:00 AM EST Medical C enter Outpatient 03/29/2019 [facility] 12:00:00 AM EST Medical C enter Outpatient Attender: SHILPI Coronado 03/12/2019 [facility] 03:02:00 PM EST Medical C enter MIKEAdmitter: SHILPI Whitley: SHILPI DOBBINS OutpatientOFFICE/O Attender: Francisca [address] [place] [address] 03/12/2019 N EXTGEN ([facility] VISIT, [facility] 03:02:00 PM EST - J osep Medical EST 03/12/2019 [place]) 03:02:00 PM EST Outpatient 03/12/2019 [facility] 12:19:00 PM EST Medical C enter Outpatient 03/12/2019 [facility] 12:00:00 AM EST Medical C enter Outpatient 01/30/2019 [facility] 04:31:00 PM EST Medical C enter Outpatient Attender: SHILPI Coronado 01/30/2019 [facility] 02:28:00 PM EST Medical C enter MIKEAdmitter: SHILPI Whitley: SHILPI DOBBINS OutpatientOFFICE/O Attender: Francisca [address] [place] [address] 01/30/2019 N EXTGEN ([facility] VISIT, [facility] 02:28:00 PM EST - J osep Medical EST 01/30/2019 [place]) 02:28:00 PM EST Outpatient 01/30/2019 [facility] 12:00:00 AM EST Medical C enter Attender: Shilpi [facility] 01/16/2019 NEXTGEN ([facility] 03:26:00 PM EST - [facility] 01/16/2019 [place]) 03:26:00 PM EST Outpatient Attender: SHILPI Coronado 01/05/2019 [facility] 04:00:00 PM EDT Medical C enter MIKEAdmitter: SHILPI Whitley: SHILPI DOBBINS OutpatientOFFICE/O Attender: Shilpi [address] [place] [address] 01/05/2019 NE XTGEN ([facility] VISIT, [facility] 04:00:00 PM EDT - J osephs Medical EST 01/05/2019 [place]) 04:00:00 PM EDT Outpatient 01/05/2019 [facility] 03:58:00 PM EDT Medical C enter Outpatient 01/05/2019 [facility] 12:00:00 AM EDT Medical C enter Attender: Shilpi [facility] 01/02/2019 NEXTGEN ([facility] [place] 10:33:00 AM EDT - [facility] 01/02/2019 [place]) 10:33:00 AM EDT Outpatient 12/29/2018 [facility] 07:00:00 PM EDT - ([facility] 03/06/2019 [facility] 06:[facility]:00 PM EST Services) Outpatient Attender: SHILPI Coronado 12/26/2018 [facility] M[facility] 03:14:00 PM EDT Medical C enter MIKEAdmitter: SHILPI Ramsayrer: SHILPI DOBBINS Attender: Francisca [address] [facility] 12/26/2018 NEXTGEN ( [facility] 03:14:00 PM EDT - [facility] 12/26/2018 [place]) 03:14:00 PM EDT Outpatient 12/26/2018 [facility] 12:33:00 PM EDT Medical C enter Outpatient 12/26/2018 [facility] 12:00:00 AM EDT Medical C enter Immunizations Vaccine Date Status Description Data Source(s) New in 2011. IIV4 12/07/2019 completed Influenza, Injectable, NEXTGEN ([facility] 12:00:00 AM EDT Quadrivalent [facility]) Source: New Immunization Record Td (adult) 08/13/2019 12:00:00 completed Td (adult) NEXTGEN ([facility] preservative free AM EDT preservative free [facility]) Source: New Immunization Record As of November 1998, 04/26/2019 12:00:00 completed Hep B, adult , 3 NEXTGEN ([facility] a 2-dose hepatitis B AM EST dose [facility] schedule for [place]) adolescents (11-15 year olds) was FDA approved for [employer]'s Recombivax HB adult formulation. Use code 43 for the 2-dose. This code should be used for any use of standard adult formulation of hepatitis B vaccine. Source: New Immunization Record As of November 1998, 12/26/2018 12:00:00 completed Hep B, adult , 3 NEXTGEN ([facility] a 2-dose hepatitis B AM EDT dose [facility] Medical schedule for Center) adolescents (11-15 year olds) was FDA approved for [employer]ck's Recombivax HB adult formulation. Use code 43 for the 2-dose. This code should be used for any use of standard adult formulation of hepatitis B vaccine. Source: New Immunization Record New in 2011. 12/26/2018 12:00:00 completed Influenza, Injectable , NEXTGEN ([facility] IIV4 AM EDT Quadrivalent [facility]) Source: New Immunization Record Medications Medication Brand Start Product Dose Route Administrative [facility] Indications Reaction Description Data Name Date Form Instructions Instructions Source(s) rizatriptan rizatr .00 ORAL active take 1 NEXTGEN 10 MG Oral iptan 2019 {tabl tablet by (S aint Tablet 10 mg 12:00: et} oral route Christian miguel rizatriptan tablet 00 AM once, may Medical 10 mg EDT repeat at 2 Center) tablet hour intervals; do not exceed 30 mg in 24 hours 1 at onset of headache, can repeat 1 aft er 2 hrs, max of 4/week Vitamin B 12 1 cyanocobalamin 11/21/2019 1 ORAL active take 1 NEXTGEN MG Oral Tablet (vit B-12) 1,000 12:00:00 AM {tablet} tablet ([facility] cyanocobalamin mcg tablet EDT by o christin Henry (vit B-12) 1,000 route Me dical mcg tablet every Center) day for 30 days Famotidine 20 MG famotidine 20 mg 10/24/2019 1 ORAL activ e take 1 NEXTGEN Oral Tablet tablet 12:00:00 AM {tablet} tablet ( famotidine 20 mg EDT by oral Carl tablet route Medical every Center) day rizatriptan 10 rizatriptan 10 10/24/[address] 1 NEXTGEN MG mg 12:00:00 AM tablet ([facility] Disintegrating disintegrating EDT by Carl Oral Tablet tablet transli Med ical rizatriptan 10 ngual Cent er) mg route disintegrating on tablet tongue it will dissolv e, then swallow , may repeat q 2 hour ; do not exceed 30 mg in 24 hours Nortriptyline 25 nortriptyline 25 10/24/2019 1 ORAL compl et take 1 NEXTGEN MG Oral Capsule mg capsule 12:00:00 AM {capsule} ed capsule ( nortriptyline 25 EDT by oral [place] mg capsule route Medical every [place]) day Bisacodyl 5 MG bisacodyl 5 mg 10/24/2019 2.00 ORAL active take 2 NEXTGEN Delayed Release tablet,delayed 12:00:00 AM {tablet} tablet ([facility] Oral Tablet release EDT by oral Peg cedeno bisacodyl 5 mg route Medi edgardo tablet,delayed every Cent er) release day Cyclobenzaprine cyclobenzaprine 10/24/2019 1 ORAL active take 1 NEXTGEN hydrochloride 5 5 mg tablet 12:00:00 AM {tablet} tablet ([facility] MG Oral Tablet EDT by oral Peg gisellstephy cyclobenzaprine route 2 M edical 5 mg tablet times Center) every day meloxicam 15 MG meloxicam 15 mg 10/24/2019 1.00 ORAL active take 1 NEXTGEN Oral Tablet tablet 12:00:00 AM {tablet} tablet ([facility] meloxicam 15 mg EDT by oral J osephs tablet route Medical every [place]) day Hydroxyzine Vistaril 10/03/2019 1.0 Oral active [facility] Pamoate 50 MG 04:00:00 AM Capsule ([facility] Oral Capsule EDT ster [Vistari] [facility] ) Sertraline 100 Zoloft 10/03/2019 1.0 Oral active [facility] MG Oral Tablet 04:00:00 AM Tablet ([facility] [Zoloft] EDT ster [facility] ) Hydroxyzine Vistaril 09/06/2019 1.0 Oral active [facility] Pamoate 50 MG 04:00:00 AM Capsule ([facility] Oral Capsule EDT ster [Vistaril] [facility] ) Sertraline 100 Zoloft 09/06/2019 1.0 Oral active [facility] MG Oral Tablet 04:00:00 AM Tablet ([facility] [Zoloft] EDT ster [facility] ) meloxicam 15 MG meloxicam 15 mg 08/22/2019 1.00 ORAL complet take 1 NEXTGEN Oral Tablet tablet 12:00:00 AM {tablet} ed tablet ([facility] meloxicam 15 mg EDT by oral J osephs tablet route Medical every Center) day POLYETHYLENE Miralax 17 08/22/2019 17 ORAL complet polyeth NEXTGEN GLYCOL 3350 142 gram/dose oral 12:00:00 AM ed ylene ([facility] MG/ML Oral powder EDT glycol Jamir hs Solution 3350 Medical [Miralax] [id number] Center) Miralax 17 MG gram/dose oral Powder powder for Oral Solutio n [Mirala x] Famotidine 20 MG famotidine 20 mg 08/22/2019 1 ORAL compl et take 1 NEXTGEN Oral Tablet tablet 12:00:00 AM {tablet} ed tablet ( famotidine 20 mg EDT by oral Carl tablet route Medical every [place]) day [place] Saline Gel sodium 08/22/2019 complet apply NEXTGEN nasal spray chloride/aloe 12:00:00 AM ed at ([facility] vera EDT bedtime [facility]) Fluconazole 150 fluconazole 150 08/13/2019 1.00 ORAL active take 1 NEXTGEN MG Oral Tablet mg tablet 12:00:00 AM {tablet} tablet ( fluconazole 150 EDT by oral J osephs mg tablet route [facility]) Hydrocortisone hydrocortisone 08/13/2019 TOPICA complet apply NEXTGEN 25 MG/ML Topical 2.5 % topical 12:00:00 AM L ed by ([facility] Cream cream EDT topical [place] hydrocortisone route 2 Me dical 2.5 % topical times Cente r) cream every day a thin layer to the affecte d area(s) Hydroxyzine Vistaril 05/02/2019 1.0 Oral active [facility] Pamoate 50 MG 05:00:00 AM Capsule ([facility] Oral Capsule EST ster [Vistaril] [facility] y Services ) Sertraline 100 Zoloft 05/02/2019 1.0 Oral active [facility] MG Oral Tablet 05:00:00 AM Tablet ([facility] [Zoloft] EST ster [facility] ) meloxicam 15 MG meloxicam 15 mg 04/26/2019 1.00 ORAL complet take 1 NEXTGEN Oral Tablet tablet 12:00:00 AM {tbl} ed tab let ([facility] meloxicam 15 mg EST by oral J osephs tablet route [facility] every [place]) day Famotidine 20 MG famotidine 20 mg 04/26/2019 1 {tbl} ORAL co mplet take 1 NEXTGEN Oral Tablet tablet 12:00:00 AM ed tabl et ( famotidine 20 mg EST by oral [place] tablet route Medical every [place]) day humidifiers humidifier 03/29/2019 complet use at NEXTGEN 12:00:00 AM ed bedtime ([facility] or [facility] sleepin Center) g [place] Saline Gel sodium 03/29/2019 complet apply NEXTGEN nasal spray chloride/aloe 12:00:00 AM ed at ([facility] vera EST bedtime [facility]) benzonatate 200 benzonatate 200 03/29/2019 1.00 ORAL complet take 1 NEXTGEN MG Oral Capsule mg capsule 12:00:00 AM {capsule} ed capsule ( benzonatate 200 EST by oral J osephs mg capsule route 3 Medica l times Center) every day as needed for cough Hydrocortisone hydrocortisone 03/29/2019 TOPICA complet apply NEXTGEN 25 MG/ML Topical 2.5 % topical 12:00:00 AM L ed by ([facility] Cream cream EST topical [facility] hydrocortisone route 2 Me dical 2.5 % topical times Cente r) cream every day a thin layer to the affecte d area(s) Naproxen 500 MG naproxen 500 mg 03/29/2019 1.00 ORAL complet take 1 NEXTGEN Oral Tablet tablet 12:00:00 AM {tablet} ed tablet ( naproxen 500 mg EST by oral J osephs tablet route 2 Medical times Center) every day with food Sertraline 100 Zoloft 03/26/2019 1.0 Oral active [facility] MG Oral Tablet 05:00:00 AM Tablet ([facility] [Zoloft] EST ster [facility] ) Hydroxyzine Vistaril 03/26/2019 1.0 Oral active [facility] Pamoate 50 MG 05:00:00 AM Capsule ([facility] Oral Capsule EST ster [Vistaril] [facility] ) Clotrimazole 10 clotrimazole 1 % 03/12/2019 TOPICA comp let apply NEXTGEN MG/ML Topical topical cream 12:00:00 AM L ed by ([facility] Cream EST topical [facility] clotrimazole 1 % route 2 Medical topical cream times Cente r) every day to the affecte d and surroun ding areas of skin in the morning and evening Sertraline 100 Zoloft 01/31/2019 1.0 Oral active [facility] MG Oral Tablet 05:00:00 AM Tablet ([facility] [Zoloft] EST [facility] y Services ) Hydroxyzine Vistaril 01/31/2019 1.0 Oral active [facility] Pamoate 50 MG 05:00:00 AM Capsule ([facility] Oral Capsule [facility] [Vistaril] [facility] y Services ) Hydrocortisone hydrocortisone 01/30/2019 TOPICA complet apply NEXTGEN 25 MG/ML Topical 2.5 % topical 12:00:00 AM L ed by ([facility] Cream cream EST topical [place] hydrocortisone route 2 Me dical 2.5 % topical times Cente r) cream every day a thin layer to the affecte d area(s) Hydroxyzine Vistaril 11/23/2018 1.0 Oral active [facility] Pamoate 50 MG 04:00:00 AM Capsule ([facility] Oral Capsule T [facility] [Vistaril] [facility] y Services ) Sertraline 100 Zoloft 11/23/2018 1.0 Oral active [facility] MG Oral Tablet 04:00:00 AM Tablet ([facility] quetiapine 25 MG SEROquel 10/17/2018 1.0 Oral active [facility] Oral Tablet 04:00:00 AM Tablet ([facility] [Seroquel] [facility] y Services ) 10/17/2018 ORAL complet NETSMA RT 04:00:00 AM ed ([facility] Services ) 10/06/2018 ORAL complet NETSMA RT 04:00:00 AM ed ([facility] y Services ) 10/06/2018 ORAL complet NETSMA RT 04:00:00 AM ed ([facility] y Services ) 10/06/2018 ORAL complet NETSMA RT 04:00:00 AM ed ([facility] y Services ) POLYETHYLENE Miralax 17 10/03/2018 17 G ORAL complet POLYETH NEXTGEN GLYCOL 3350 142 gram/dose oral 12:00:00 AM ed YLENE ([facility] MG/ML Oral powder EDT GLYCOL Jamir hs Solution 3350 Medical [Miralax] [address] Center) Miralax 17 MG gram/dose oral Powder powder for Oral Solutio n [Mirala x] Ibuprofen 600 MG ibuprofen 600 mg 07/18/2018 1.00 ORAL compl et take 1 NEXTGEN Oral Tablet tablet 12:00:00 AM {tablet} ed tablet ([facility] ibuprofen 600 mg EDT by oral Carl tablet route 3 Medical times [place]) every day with food rizatriptan 10 rizatriptan 10 02/06/[address] 1 NEXTGEN MG mg 12:00:00 AM ed tablet ([facility] Disintegrating disintegrating EST by Carl Oral Tablet tablet transli Med ical rizatriptan 10 ngual Cent er) mg route disintegrating on tablet tongue it will dissolv e, then swallow , may repeat q 2 hour ; do not exceed 30 mg in 24 hours rizatriptan 10 rizatriptan 10 10/03/2017 1.00 ORAL complet take 1 NEXTGEN MG Oral Tablet mg tablet 12:00:00 AM {tablet} ed tablet ([facility] rizatriptan 10 EDT by oral Peg sephs mg tablet route Medical once, Center) may repeat at 2 hour interva ls; do not exceed 30 mg in 24 hours 1 at onset of headache, can repeat 1 aft er 2 hrs, max of 4/week Acetaminophen Fioricet 50 07/20/2017 ORAL completed acetaminophen NEXTGEN 300 MG / mg-300 mg-40 mg 12:00:00 AM 300 MG / (Saint butalbital 50 capsule EDT butalbit al 50 Carl MG / Caffeine MG / caffei ne Medical 40 MG Oral [address]) Capsule Capsule [Fioricet] [Fioricet] Fioricet 50 mg-300 mg-40 mg capsule Clonidine clonidine HCl 05/09/2017 1 ORAL completed take 1 tablet NEXTGEN Hydrochloride 0.1 mg tablet 12:00:00 AM {t by oral route (Saint 0.1 MG Oral EST ab every day Giovani ephs Tablet le Medical clonidine HCl t} Carbon ) 0.1 mg tablet Nortriptyline nortriptyline 03/01/2017 1 ORAL completed take 1 capsule NEXTGEN 25 MG Oral 25 mg capsule 12:00:00 AM {c by oral route (Saint Capsule EST ap every day Carl nortriptyline bustamante Medica l 25 mg capsule le [place] ) } Insurance Providers Payer name Policy type Policy ID Covered Covered libertarian's Policy P evan / Coverage libertarian ID relationship to Demarco Inf ormation type demarco [facility] [id number] SP [id number] MEDICAID COMM PLAN HMO MEDICAID W [id number] 01 [id number] UHC OP UHC MEDICAID Medicaid [id number] self [id number] UHC OP HMO MEDICAID Medicaid [id number] self [id number] UH OP UNHC [id number] SP [id number] MEDICAID COMM PLAN-APPEAL Medicaid [id number] S [id number] Wrap Claims Medicaid [id number] S [id number] Regular Clinic Visit (DO NOT USE) [id number] S [id number] Sebastian Care Auth PCP Not MVNHC/YHC/GH C Problems, Conditions, and Diagnoses Code Display Name Description Problem Type Effective Data Dates Source(s) Z71.82 Exercise EXERCISE Diagnosis 12/25/2019 [facility] counseling COUNSELING 10:14:00 AM Medical EDT Center Z71.3 Dietary counseling DIETARY COUNSELING Diagnosis 0 [facility] and surveillance AND SURVEILLANCE 10:14:00 [facility] Z68.39 Body mass index BODY MASS INDEX Diagnosis 12/25/2019 [facility] (BMI) 39.0-39.9, (BMI) 39.0-39.9, 10:14:00 AM [facility] adult ADULT EDT Center E66.9 Obesity, OBESITY, Diagnosis 12/25/2019 [facility] unspecified UNSPECIFIED 10:14:00 AM Medical EDT Center K21.00 GASTRO-ESOPHAGEAL GASTRO-ESOPHAGEAL Diagnosis 12/25/2019 [facility] REFLUX DIS WITH REFLUX DIS WITH 10:14:00 AM Med ical ESOPHAGITIS, ESOPHAGITIS, EDT Center WITHOUT BLEED WITHOUT BLEED R70.0 Elevated ELEVATED Diagnosis 12/18/2019 [facility] erythrocyte ERYTHROCYTE 10:21:00 AM Medical sedimentation rate SEDIMENTATION RATE EDT Center N63.0 Unspecified lump UNSPECIFIED LUMP Diagnosis 12/18/2019 Sa kei Henry in unspecified IN UNSPECIFIED 10:21:00 AM Medic al breast BREAST EDT Center R76.0 Raised antibody RAISED ANTIBODY Diagnosis 12/07/2019 [facility] titer TITER 10:19:00 AM Medical EDT Center F41.9 Anxiety disorder, ANXIETY DISORDER, Diagnosis 12/07/2019 [facility] unspecified UNSPECIFIED 10:19:00 AM Medical EDT Center Z23 Encounter for ENCOUNTER FOR Diagnosis 12/07/2019 [facility] Peg cedeno immunization IMMUNIZATION 10:19:00 AM Medical EDT Center R22.9 Localized LOCALIZED Diagnosis 12/07/2019 [facility] swelling, mass and SWELLING, MASS AND 10:19:00 AM Medical lump, unspecified LUMP, UNSPECIFIED EDT Center F32.9 Major depressive MAJOR DEPRESSIVE Diagnosis 12/07/2019 [place] [facility] disorder, single DISORDER, SINGLE 10:19:00 AM edical episode, EPISODE, EDT Center unspecified UNSPECIFIED L60.0 Ingrowing nail INGROWING NAIL Diagnosis 11/21/2019 [facility] 02:26:00 PM Medical EDT Center D51.9 Vitamin B12 VITAMIN B12 Diagnosis 11/21/2019 [facility] Alden keyes deficiency anemia, DEFICIENCY ANEMIA, 02:26:00 PM Medical unspecified UNSPECIFIED EDT Center R73.03 Prediabetes PREDIABETES Diagnosis 11/21/2019 [facility] keyes 02:26:00 PM Medical EDT Center Z68.38 Body mass index BODY MASS INDEX Diagnosis 10/24/2019 [facility] (BMI) 38.0-38.9, (BMI) 38.0-38.9, 11:32:00 AM [facility] adult ADULT EDT Center Z12.31 Encounter for ENCNTR SCREEN Diagnosis 10/24/2019 Peg cedeno screening MAMMOGRAM FOR 11:32:00 AM Medical mammogram for MALIGNANT NEOPLASM EDT Leo ter malignant neoplasm OF BREAST of breast M54.2 Cervicalgia CERVICALGIA Diagnosis 10/24/2019 [facility] Ald[facility] keyes 11:32:00 AM Medical EDT Center Z00.00 Encounter for ENCNTR FOR GENERAL Diagnosis 10/24/2019 [facility] general adult ADULT MEDICAL EXAM 11:32:00 AM Ar dicwv medical W/O ABNORMAL EDT Center examination FINDINGS without abnormal findings Z51.89 Encounter for ENCOUNTER FOR Diagnosis 08/22/2019 [facility] Ruvalcaba pao other specified OTHER SPECIFIED 11:18:00 AM Med ical aftercare AFTERCARE EDT Center Z68.37 Body mass index BODY MASS INDEX Diagnosis 08/13/2019 [facility]iel [facility] (BMI) 37.0-37.9, (BMI) 37.0-37.9, 10:49:00 AM edical adult ADULT EDT Center N76.0 Acute vaginitis ACUTE VAGINITIS Diagnosis 08/13/2019 [facility] 10:49:00 AM Medical EDT Center Z68.31 Body mass index BODY MASS INDEX Diagnosis 04/26/2019 [facility] (BMI) 31.0-31.9, (BMI) 31.0-31.9, 11:34:00 AM M edical adult ADULT EST Center Z68.41 Body mass index BODY MASS INDEX Diagnosis 03/29/2019 [facility] (BMI) 40.0-44.9, (BMI) 40.0-44.9, 12:21:00 PM M edical adult ADULT EST Center R05 Cough COUGH Diagnosis 03/29/2019 [facility] 12:21:00 PM Medical EST Center M25.541 Pain in joints of PAIN IN JOINTS OF Diagnosis 03/29/2019 [facility] right hand RIGHT HAND 12:21:00 PM Medical EST Center E66.01 Morbid (severe) MORBID (SEVERE) Diagnosis 03/12/2019 [facility] obesity due to OBESITY DUE TO 03:02:00 PM Medic al excess calories EXCESS CALORIES EST Cent er R21 Rash and other RASH AND OTHER Diagnosis 03/12/2019 [facility] nonspecific skin NONSPECIFIC SKIN 03:02:00 PM M edical eruption ERUPTION EST Center Y92.89 Other specified OTH PLACES THE Diagnosis 01/30/2019 Sa [facility]i [facility] places as the PLACE OF 02:28:[address] of OCCURRENCE OF THE EST Center occurrence of the EXTERNAL CAUSE external cause Y93.9 Activity, ACTIVITY, Diagnosis 01/30/2019 [facility] unspecified UNSPECIFIED 02:28:00 PM Medical EST Center W57.XXXA Bitten or stung by BIT/STUNG BY Diagnosis 01/30/2019 [facility]iel Henry nonvenomous insect NONVENOM INSECT 02:28:00 PM Medical and other and OTH NONVENOM EST Center nonvenomous ARTHROPODS, INIT arthropods, initial encounter S00.86XA Insect bite INSECT BITE Diagnosis 01/30/2019 [facility] Alden keyes (nonvenomous) of (NONVENOMOUS) OF 02:28:00 PM M edical other part of OTHER PART OF EST Center head, initial HEAD, INIT ENCNTR encounter R31.9 Hematuria, HEMATURIA, Diagnosis 01/30/2019 [facility] unspecified UNSPECIFIED 02:28:00 PM Medical EST Center I10 Essential ESSENTIAL Diagnosis 01/30/2019 [facility] (primary) (PRIMARY) 02:28:00 PM Medical hypertension HYPERTENSION EST Center J02.8 Acute pharyngitis ACUTE PHARYNGITIS Diagnosis 01/05/2019 [facility] Carl due to other DUE TO OTHER 04:00:00 PM Medical specified SPECIFIED EDT Center organisms ORGANISMS M25.562 Pain in left knee PAIN IN LEFT KNEE Diagnosis 12/26/2018 [facility] Carl 03:14:00 PM Medical EDT Center Surgeries/Procedures Procedure Description Date Indications Data Source(s) OFFICE/OUTPATIENT VISIT, 12/07/2019 NEX TGEN ([facility] EST 12:00:00 AM EDT [facility] - 12/07/2019 Carbon) 12:00:00 AM EDT Influenza, Injectable, 3 12/07/2019 NEX TGEN ([facility] Yrs Or Older 12:00:00 AM EDT [facility] 12/07/2019 [place]) 12:00:00 AM EDT Immunization 12/07/2019 NEXTGEN ([facility] Administration 12:00:00 AM EDT [facility] dical 12/07/2019 [place]) 12:00:00 AM EDT OFFICE/OUTPATIENT VISIT, 11/21/2019 NEX TGEN ([facility] EST 12:00:00 AM EDT [facility] - 11/21/2019 [place]) 12:00:00 AM EDT Well Visit, Est,40-64years 10/24/2019 N EXTGEN ([facility] 12:00:00 AM EDT [facility] - 10/24/2019 [place]) 12:00:00 AM EDT ROUTINE VENIPUNCTURE 10/24/2019 NEXTGEN ([facility] 12:00:00 AM EDT [facility] 10/24/2019 [place]) 12:00:00 AM EDT OFFICE/OUTPATIENT VISIT, 08/22/2019 NEX TGEN ([facility] EST 12:00:00 AM EDT [facility] - 08/22/2019 [place]) 12:00:00 AM EDT OFFICE/OUTPATIENT VISIT, 08/13/2019 NEX TGEN ([facility] EST 12:00:00 AM EDT [facility] - 08/13/2019 [place]) 12:00:00 AM EDT TD VACCINE >7 IM 08/13/2019 NEXTGEN (Sa int 12:00:00 AM EDT [facility] 08/13/2019 [place]) 12:00:00 AM EDT Immunization 08/13/2019 NEXTGEN ([facility] Administration 12:00:00 AM EDT Carl Ar dical - 08/13/2019 Center) 12:00:00 AM EDT OFFICE/OUTPATIENT VISIT, 04/26/2019 NEX TGEN ([facility] EST 12:00:00 AM EST [facility] - 04/26/2019 Center) 12:00:00 AM EST HEP B VACCINE, ADULT, IM 04/26/2019 NEX TGEN ([facility] 12:00:00 AM EST [facility] - 04/26/2019 Center) 12:00:00 AM EST Immunization 04/26/2019 NEXTGEN ([facility] Administration 12:00:00 AM EST [facility] dical - 04/26/2019 Center) 12:00:00 AM EST OFFICE/OUTPATIENT VISIT, 04/18/2019 NEX TGEN ([facility] EST 12:00:00 AM EST [facility] - 04/18/2019 Center) 12:00:00 AM EST OFFICE/OUTPATIENT VISIT, 03/29/2019 NEX TGEN ([facility] EST 12:00:00 AM EST [facility] - 03/29/2019 Carbon) 12:00:00 AM EST ROUTINE VENIPUNCTURE 03/29/2019 NEXTGEN ([facility] 12:00:00 AM EST [facility] - 03/29/2019 Center) 12:00:00 AM EST OFFICE/OUTPATIENT VISIT, 03/12/2019 NEX TGEN ([facility] EST 12:00:00 AM EST [facility] - 03/12/2019 Center) 12:00:00 AM EST OFFICE/OUTPATIENT VISIT, 01/30/2019 NEX TGEN ([facility] EST 12:00:00 AM EST [facility] - 01/30/2019 Center) 12:00:00 AM EST OFFICE/OUTPATIENT VISIT, 01/05/2019 NEX TGEN ([facility] EST 12:00:00 AM EDT [facility] - 01/05/2019 Center) 12:00:00 AM EDT Influenza, Injectable, 3 12/26/2018 NEX TGEN ([facility] Yrs Or Older 12:00:00 AM EDT [facility] - 12/26/2018 Center) 12:00:00 AM EDT Immunization 12/26/2018 NEXTGEN ([facility] Administration 12:00:00 AM EDT [facility] dical - 12/26/2018 Center) 12:00:00 AM EDT HEP B VACCINE, ADULT, IM 12/26/2018 NEX TGEN ([facility] 12:00:00 AM EDT Carl Medi edgardo - 12/26/2018 Center) 12:00:00 AM EDT Immunization 12/26/2018 NEXTGEN ([facility] Administration 12:00:00 AM EDT Carl Me dical - 12/26/2018 Center) 12:00:00 AM EDT Results ID Date Data Source HematologySpeci.[id number] 11/21/2019 03:45:00 PM EDT [facility] 0-0400 Name Value Range Interpretation Description Data Sup porting Code Source(s) Document(s ) C reactive < 3.0 Above high normal <content [facility] protein styleCode="Bold" Carl [Mass/volume] in >C-Reactive [facility] Serum or Plasma Protein Center </content>4.45 MG/L H<content styleCode="Itali cs"> (< 3.0 MG/L)</content> Erythrocyte 0-20 Above high normal <content [facility] sedimentation styleCode="Bold" Carl rate by >[facility] method Rate (ESR) </content>23 MM/hr H<content styleCode="Itali cs"> (0-20 MM/hr)</content> ID Date Data Source Urinalysis.[id number] 10/24/2019 01:25:00 PM EDT [facility] 0 Name Value Range Interpretation Description Data Sup porting Code Source(s) Document(s ) Color of Urine YELLOW <content [facility] styleCode="[place]anch[place] Ruanos d">Color, Medical Urine Center </content>YELL OW <content styleCode="Trinity lics"> (YELLOW )</content> Glucose NEGATIVE <content [facility] [Mass/volume] styleCode="[facility] [facility] in Urine by d">Urine Medical Test strip Glucose Center </content>NEGA TIVE MG/DL<content styleCode="[facility]"> (NEGATIVE MG/DL)</conten t> UNK CLEAR <content [facility] styleCode="[facility] Carl d">Urine Medical Clarity Center </content>THONY R <content styleCode="[facility]"> (CLEAR )</content> Ketones NEGATIVE <content [facility] [Mass/volume] styleCode="[facility] Carl in Urine by d">Urine Medical Test strip Ketone Center </content>NEGA TIVE MG/DL<content styleCode="[facility] lics"> (NEGATIVE MG/DL)</conten t> Specific 1.015-1.02 Below low normal <content [facility] gravity of 5 styleCode="[facility] Carl Urine by Test d">Urine Medical strip Specific Center [place] </content><= 1.005 L<content styleCode="Trinity lics"> (1.015-1.025 )</content> UNK NEGATIVE <content [facility] styleCode="[place] Carl d">Urine Medical Bilirubin Center </content>NEGA TIVE <content styleCode="[facility]"> (NEGATIVE )</content> Hemoglobin NEGATIVE <content [facility] [Presence] in styleCode="[facility] Carl Urine by Test d">Urine Blood Medical strip </content>NEGA Center TIVE <content styleCode="[facility] lics"> (NEGATIVE )</content> pH of Urine by 4.5-8.0 <content [facility] Test strip styleCode="[facility] Carl d">Urine pH Medical </content>6.0 Center <content styleCode="Tr[facility] lics"> (4.5-8.0 )</content> Urobilinogen 0.2-1.0 <content [facility] [Units/volume] styleCode="[facility] in Urine by d">Urine Medical Test strip Urobilinogen Center </content>0.2 MG/DL<content styleCode="Trinity lics"> (0.2-1.0 MG/DL)</conten t> Protein NEGATIVE <content [facility] [Mass/volume] styleCode="[place] [facility] in Urine by d">Urine Medical Test strip Protein Center </content>NEGA TIVE MG/DL<content styleCode="[facility] lics"> (NEGATIVE MG/DL)</conten t> Leukocyte NEGATIVE <content [facility] esterase styleCode="[place] Carl [Presence] in d">Urine Medical Urine by Test Leukocyte Center strip </content>NEGA TIVE <content styleCode="[facility]"> (NEGATIVE )</content> Nitrite NEGATIVE <content Saint [Presence] in styleCode="[facility] Urine by Test d">Urine Medical strip Nitrite Center </content>NEGA TIVE <content styleCode="[facility] l[facility]"> (NEGATIVE )</content> ID Date Data Source Liver 10/24/2019 01:25:00 PM EDT [facility] Profile.[id number] Name Value Range Interpretation Description Data Sup porting Code Source(s) Document(s ) Alanine 7-30 Above high <content [facility] aminotransferase normal styleCode="Bold"> Jamir hs [Enzymatic Alanine Medical activity/volume] Aminotransferase Center in Serum or Plasma (ALT) </content>35 IU/L H<content styleCode="Italic s"> (7-30 IU/L)</content> Aspartate 14-36 <content [facility] aminotransferase styleCode="Bold"> Jamir hs [Enzymatic Aspartate Medical activity/volume] Aminotransferase Center in Serum or Plasma (AST) </content>33 IU/L<content styleCode="Italic s"> (14-36 IU/L)</content> Bilirubin.total 0.2-1.3 Below low <content [facility] [Mass/volume] in normal styleCode="Bold"> Jamir hs Serum or Plasma Bilirubin Total Medical </content>< 0.2 Center MG/DL L<content styleCode="Italic s"> (0.2-1.3 MG/DL)</content> Alkaline 38-126 <content [facility] phosphatase styleCode="Bold"> Carl [Enzymatic Alkaline Medical activity/volume] Phosphatase (ALP) Cente r in Serum or Plasma </content>85 IU/L<content styleCode="Italic s"> (38-126 IU/L)</content> Albumin 3.5-5.0 <content [facility] [Mass/volume] in styleCode="Bold"> Jamir hs Serum or Plasma Albumin Medical </content>4.0 Center G/DL<content styleCode="Italic s"> (3.5-5.0 G/DL)</content> ID Date Data Source LIPID.[id number] 10/24/2019 01:25:00 PM EDT [facility] Name Value Range Interpretation Description Data Sup porting Code Source(s) Document(s ) Cholesterol -<200 <content [facility] [Mass/volume] in styleCode="[facility] Carl Serum or Plasma d">Cholesterol Medical </content>151 Center MG/DL<content styleCode="Trinity lics"> (-<200 MG/DL)</conten t> UNK > 60 Below low normal <content Saint styleCode="[place] Carl d">HDL- Medical Cholesterol Center </content>31 MG/DL L<content styleCode="Tr[facility] lics"> (> 60 MG/DL)</conten t> Triglyceride < 150 Above high normal <content [facility] [Mass/volume] in styleCode="[facility] Acrl Serum or Plasma d">Triglycerid [facility] es Center </content>190 MG/DL H<content styleCode="Trinity lics"> (< 150 MG/DL)</conten t> UNK < 100 <content Saint styleCode="[place] Carl d">LDL-Cholest [facility] Center </content>82 MG/DL<content styleCode="Trinity lics"> (< 100 MG/DL)</conten t> ID Date Data Source Hormones.[id number] 10/24/2019 01:25:00 PM EDT [facility] Name Value Range Interpretation Description Data Sup porting Code Source(s) Document(s ) Thyrotropin 0.465-4. <content [facility] [Units/volume] 68 styleCode="[place] Carl in Serum or d">Thyroid Medical Plasma by Stimulating Center Detection Hormone limit <= 0.05 </content>1.06 mIU/L MIU/L<content styleCode="Trinity lics"> (0.465-4.68 MIU/L)</conten t> ID Date Data Source HematologyRou.[id number] 10/24/2019 01:25:00 PM EDT [facility] 0400 Name Value Range Interpretation Description Data Sup porting Code Source(s) Document(s ) Leukocytes 4.4-11.0 <content [facility] [#/volume] in styleCode="Bold Carl Blood by ">White Blood Medical Automated count Cell Count Center </content>8.42 KCUMM<content styleCode="Ital ics"> (4.4-11.0 KCUMM)</content > Hemoglobin 12.3-16. <content [facility] [Mass/volume] in 0 styleCode="Bold Carl Blood ">Hemoglobin Medical </content>12.5 Center G/DL<content styleCode="Ital ics"> (12.3-16.0 G/DL)</content> Erythrocytes 4.0-5.1 <content [facility] [#/volume] in styleCode="Bold Carl Blood by ">Red Blood Medical Automated count Cell Count Center </content>4.61 MCUMM<content styleCode="Ital ics"> (4.0-5.1 MCUMM)</content > Hematocrit 36.0-46. <content Saint [Volume 0 styleCode="Bold Carl Fraction] of ">Hematocrit Medical Blood by </content>39.3 Center Automated count %<content styleCode="Ital ics"> (36.0-46.0 %)</content> Erythrocyte mean 32.0-37. Below low normal <content [facility] corpuscular 0 styleCode="Bold Carl hemoglobin ">Mean Corpus. Medical concentration Hgb Center [Mass/volume] by Concentration Automated count (MCHC) </content>31.8 G/DL L<content styleCode="Ital ics"> (32.0-37.0 G/DL)</content> Erythrocyte mean 26.0-34. <content [facility] corpuscular 0 styleCode="Bold Carl hemoglobin ">Mean Medical [Entitic mass] Corposcular Center by Automated Hemoglobin count </content>27.1 PG<content styleCode="Ital ics"> (26.0-34.0 PG)</content> Erythrocyte 11.5-14. <content [facility] distribution 5 styleCode="Bold Carl width [Ratio] by ">Red Cell Medical Automated count Distribution Center Width </content>13.7 %<content styleCode="Ital ics"> (11.5-14.5 %)</content> Erythrocyte mean 80.0-100 <content [facility] corpuscular .0 styleCode="Bold Carl volume [Entitic ">Mean Medical volume] by Corpuscular Center Automated count Volume </content>85.2 FL<content styleCode="Ital ics"> (80.0-100.0 FL)</content> UNK 0.0 <content Saint styleCode="Bold Carl ">Nucleated Red Medical Blood Cell Center Count </content>0.00 KCUMM<content styleCode="Ital ics"> (0.0 KCUMM)</content > Platelet mean 8.0-11.0 <content Saint volume [Entitic styleCode="Bold Carl volume] in Blood ">Mean Platelet Medical by Automated Volume Center count </content>10.2 FL<content styleCode="Ital ics"> (8.0-11.0 FL)</content> UNK 0 <content Saint styleCode="Bold Carl ">Nucleated Red Medical Blood Cell Center </content>0.0 /100<content styleCode="Ital ics"> (0 /100)</content> Platelets 130-400 <content Saint [#/volume] in styleCode="Bold Carl Blood by ">Platelet Medical Automated count Count Center </content>307 KCUMM<content styleCode="Ital ics"> (130-400 KCUMM)</content > ID Date Data Source GFR(Creatinine).[id number] 10/24/2019 01:25:00 PM EDT [facility] 0-0400 Name Value Range Interpretation Code Description Data Cheri rce(s) Supporting Document(s ) UNK > 60 <content [facility] Carl styleCode="Bold"> Medical Cent er EGFR </content>83 GFR<content styleCode="Italic s"> (> 60 GFR)</content> ID Date Data Source ChemistrySpecia.[id number] 10/24/2019 01:25:00 PM EDT [facility] 0-0400 Name Value Range Interpretation Description Data Sup porting Code Source(s) Document(s ) Cobalamin 239-931 <content Saint (Vitamin B12) styleCode="[place] [facility] [Mass/volume] d">Vitamin B12 Medical in Serum or </content>245 Center Plasma PG/ML<content styleCode="Trinity lics"> (239-931 PG/ML)</conten t> ID Date Data Source JASON.[id number] 10/24/2019 01:25:00 PM EDT [facility] -0400 Name Value Range Interpretation Description Data Sup porting Code Source(s) Document(s ) UNK 4.2-5.8 Above high normal <content [facility] styleCode="Bold Medical ">Hemoglobin Center A1C </content>6.1 % H<content styleCode="Ital ics"> (4.2-5.8 %)</content> UNK 2.3-3.5 Above high normal <content [facility] styleCode="Bold Medical ">Globulin Center </content>3.7 G/DL H<content styleCode="Ital ics"> (2.3-3.5 G/DL)</content> UNK >= 1.0 <content [facility] styleCode="Bold Medical ">AG Ratio Center </content>1.1 <content styleCode="Ital ics"> (>= 1.0 )</content> Protein 6.3-8.2 <content [facility] [Mass/volum styleCode="Bold Medical e] in Serum ">Total Protein Center or Plasma </content>7.7 G/DL<content styleCode="Ital ics"> (6.3-8.2 G/DL)</content> ID Date Data Source [id number] 10/24/2019 01:25:00 PM EDT [facility] Name Value Range Interpretation Description Data Sup porting Code Source(s) Document(s ) Chloride 98-107 <content Saint [Moles/volume] in styleCode="Bold"> [facility] Serum or Plasma Chloride Medical </content>105 Center MEQ/L<content styleCode="Italic s"> (98-107 MEQ/L)</content> Sodium 137-145 <content [facility] [Moles/volume] in styleCode="Bold"> [facility] Serum or Plasma Sodium Medical </content>139 Center MEQ/L<content styleCode="Italic s"> (137-145 MEQ/L)</content> Potassium 3.5-5.3 <content [facility] [Moles/volume] in styleCode="Bold"> Christian phs Serum or Plasma Potassium Medical </content>4.4 Center MEQ/L<content styleCode="Italic s"> (3.5-5.3 MEQ/L)</content> Carbon dioxide, 22-30 <content Saint total styleCode="Bold"> Carl [Moles/volume] in Carbon Dioxide Medical Serum or Plasma </content>29 Center MEQ/L<content styleCode="Italic s"> (22-30 MEQ/L)</content> UNK 7-17 <content Saint styleCode="Bold"> Carl BUN </content>17 Medical MG/DL<content Center styleCode="Italic s"> (7-17 MG/DL)</content> Glucose 74-106 Above high <content Saint [Mass/volume] in normal styleCode="Bold"> Jamir hs Serum or Plasma Glucose Medical </content>124 Center MG/DL H<content styleCode="Italic s"> (74-106 MG/DL)</content> Creatinine 0.5-1.3 <content [facility] [Mass/volume] in styleCode="Bold"> Jamir hs Serum or Plasma Creatinine Medical </content>0.8 Center MG/DL<content styleCode="Italic s"> (0.5-1.3 MG/DL)</content> Calcium 8.4-10. <content [facility] [Mass/volume] in 2 styleCode="Bold"> Jamir hs Serum or Plasma Calcium Medical </content>9.3 Center MG/DL<content styleCode="Italic s"> (8.4-10.2 MG/DL)</content> Aspartate 14-36 <content Saint aminotransferase styleCode="Bold"> Jamir hs [Enzymatic Aspartate Medical activity/volume] Aminotransferase Center in Serum or Plasma (AST) </content>33 IU/L<content styleCode="Italic s"> (14-36 IU/L)</content> Alanine 7-30 Above high <content Saint aminotransferase normal styleCode="Bold"> Jamir hs [Enzymatic Alanine Medical activity/volume] Aminotransferase Center in Serum or Plasma (ALT) </content>35 IU/L H<content styleCode="Italic s"> (7-30 IU/L)</content> UNK > 60 <content Saint styleCode="Bold"> Carl EGFR </content>83 Medical GFR<content Center styleCode="Italic s"> (> 60 GFR)</content> Alkaline 38-126 <content Saint phosphatase styleCode="Bold"> Carl [Enzymatic Alkaline Medical activity/volume] Phosphatase (ALP) Cente r in Serum or Plasma </content>85 IU/L<content styleCode="Italic s"> (38-126 IU/L)</content> Bilirubin.total 0.2-1.3 Below low <content Saint [Mass/volume] in normal styleCode="Bold"> Jamir hs Serum or Plasma Bilirubin Total Medical </content>< 0.2 Center MG/DL L<content styleCode="Italic s"> (0.2-1.3 MG/DL)</content> Albumin 3.5-5.0 <content Saint [Mass/volume] in styleCode="Bold"> Jamir hs Serum or Plasma Albumin Medical </content>4.0 Center G/DL<content styleCode="Italic s"> (3.5-5.0 G/DL)</content> ID Date Data Source [id number] 09/27/2019 01:50:00 PM EDT [facility] Name Value Range Interpretation Code Description Data Cheri rce(s) Supporting Document(s ) COV2 [facility] and reported by [facility]. ID Date Data Source [id number] 08/26/2019 05:55:00 AM EDT [facility] Name Value Range Interpretation Code Description Data Cheri rce(s) Supporting Document(s ) [facility]OV[facility] by [facility] and reported by [employer]. ID Date Data Source [id number] 08/13/2019 11:26:00 AM EDT [facility] 0 Name Value Range Interpretation Description Data Sup porting Code Source(s) Document(s ) Color of Urine YELLOW <content Saint styleCode="[place] d">Color, Medical Urine Center </content>YELL OW <content styleCode="Trinity [facility]ics"> (YELLOW )</content> UNK CLEAR <content Saint styleCode="[place] d">Urine Medical Clarity Center </content>THONY R <content styleCode="[facility]"> (CLEAR )</content> UNK NEGATIVE <content Saint styleCode="[place] d">Urine Medical Bilirubin Center </content>NEGA TIVE <content styleCode="[facility]"> (NEGATIVE )</content> Glucose NEGATIVE <content Saint [Mass/volume] styleCode="[place] in Urine by d">Urine Medical Test strip Glucose Center </content>NEGA TIVE MG/DL<content styleCode="[facility]"> (NEGATIVE MG/DL)</conten t> Specific 1.015-1.02 <content Saint gravity of 5 styleCode="[place] Urine by Test d">Urine Medical strip Specific Center [place] </content>1.02 5 <content styleCode="Tr[facility] lics"> (1.015-1.025 )</content> Ketones NEGATIVE <content Saint [Mass/volume] styleCode="[place] in Urine by d">Urine Medical Test strip [facility]one [facility] </content>NEGA TIVE MG/DL<content styleCode="Tr[facility] lics"> (NEGATIVE MG/DL)</conten t> Hemoglobin NEGATIVE <content Saint [Presence] in styleCode="[place] Urine by Test d">Urine Blood Medical strip </content>TRAC Center E <content styleCode="[facility]"> (NEGATIVE )</content> pH of Urine by 4.5-8.0 <content Saint Test strip styleCode="[place] d">Urine pH Medical </content>5.5 Center <content styleCode="Tr[facility] lics"> (4.5-8.0 )</content> Urobilinogen 0.2-1.0 <content Saint [Units/volume] styleCode="[place] in Urine by d">Urine Medical Test strip Urobilinogen Center </content>0.2 MG/DL<content styleCode="Trinity lics"> (0.2-1.0 MG/DL)</conten t> Protein NEGATIVE <content Saint [Mass/volume] styleCode="[place] in Urine by d">Urine Medical Test strip Protein Center </content>NEGA TIVE MG/DL<content styleCode="Tr[facility]"> (NEGATIVE MG/DL)</conten t> Leukocyte NEGATIVE <content Saint esterase styleCode="[place] [Presence] in d">Urine Medical Urine by Test Leukocyte Center strip </content>NEGA TIVE <content styleCode="Tr[facility]"> (NEGATIVE )</content> Nitrite NEGATIVE <content Saint [Presence] in styleCode="[place] Urine by Test d">Urine Medical strip Nitrite Center </content>NEGA TIVE <content styleCode="[facility]"> (NEGATIVE )</content> UNK 0-3 <content Saint styleCode="[place] d">Urine Red Medical Blood Cell Center </content>0-3 HPF<content styleCode="Trinity lics"> (0-3 HPF)</content> UNK 0-3 <content Saint styleCode="[place] d">Urine White Medical Blood Cell Center </content>0-3 HPF<content styleCode="Trinity lics"> (0-3 HPF)</content> ID Date Data Source [id number] 05/17/2019 11:15:21 AM EST [facility] ([facility] [id number] [facility]) Name Value Range Interpretation Code Description Data Cheri rce(s) Supporting Document(s ) ID Date Data Source [id number] 03/30/2019 10:10:00 AM EST [facility] Name Value Range Interpretation Description Data Sup porting Code Source(s) Document(s ) Triglyceride < 150 Above high normal <content Saint [Mass/volume] in styleCode="[place] Serum or Plasma d">Triglycerid [facility] Center </content>187 MG/DL H<content styleCode="Trinity lics"> (< 150 MG/DL)</conten t> UNK > 60 Below low normal <content Saint styleCode="[place] d">HDL- Medical Cholesterol Center </content>24 MG/DL L<content styleCode="Trinity lics"> (> 60 MG/DL)</conten t> Cholesterol -<200 <content Saint [Mass/volume] in styleCode="[place] Serum or Plasma d">Cholesterol Medical </content>132 Center MG/DL<content styleCode="Trinity lics"> (-<200 MG/DL)</conten t> UNK < 100 <content Saint styleCode="[place] d">LDL-Cholest [facility] </content>71 MG/DL<content styleCode="Trinity lics"> (< 100 MG/DL)</conten t> ID Date Data Source HematologySpeci.[id number] 03/30/2019 10:10:00 AM EST [facility] 0-0500 Name Value Range Interpretation Description Data Sup porting Code Source(s) Document(s ) C reactive < 3.0 Above high normal <content Saint protein styleCode="Bold" Carl [Mass/volume] in >C-Reactive [facility] Serum or Plasma Protein Center </content>6.34 MG/L H<content styleCode="Itali cs"> (< 3.0 MG/L)</content> Erythrocyte < 20 Above high normal <content Saint sedimentation styleCode="Bold" Carl rate by >[facility]rythrocyte [facility] method Rate (ESR) </content>45 MM/hr H<content styleCode="Itali cs"> (< 20 MM/hr)</content> ID Date Data Source HematologyRou.[id number] 03/30/2019 10:10:00 AM EST [facility] 0500 Name Value Range Interpretation Description Data Sup porting Code Source(s) Document(s ) Erythrocytes 4.0-5.1 <content Saint [#/volume] in styleCode="Bold Carl Blood by ">Red Blood Medical Automated count Cell Count Center </content>4.83 MCUMM<content styleCode="Ital ics"> (4.0-5.1 MCUMM)</content > Hemoglobin 12.3-16. <content Saint [Mass/volume] in 0 styleCode="Bold Carl Blood ">Hemoglobin Medical </content>13.2 Center G/DL<content styleCode="Ital ics"> (12.3-16.0 G/DL)</content> Leukocytes 4.4-11.0 <content Saint [#/volume] in styleCode="Bold Carl Blood by ">White Blood Medical Automated count Cell Count Center </content>7.90 KCUMM<content styleCode="Ital ics"> (4.4-11.0 KCUMM)</content > Hematocrit 36.0-46. <content Saint [Volume 0 styleCode="Bold Carl Fraction] of ">Hematocrit Medical Blood by </content>40.3 Center Automated count %<content styleCode="Ital ics"> (36.0-46.0 %)</content> Erythrocyte mean 26.0-34. <content Saint corpuscular 0 styleCode="Bold Carl hemoglobin ">Mean Medical [Entitic mass] Corposcular Center by Automated Hemoglobin count </content>27.3 PG<content styleCode="Ital ics"> (26.0-34.0 PG)</content> Erythrocyte mean 80.0-100 <content Saint corpuscular .0 styleCode="Bold Carl volume [Entitic ">Mean Medical volume] by Corpuscular Center Automated count Volume </content>83.4 FL<content styleCode="Ital ics"> (80.0-100.0 FL)</content> Platelets 130-400 <content Saint [#/volume] in styleCode="Bold Carl Blood by ">Platelet Medical Automated count Count Center </content>311 KCUMM<content styleCode="Ital ics"> (130-400 KCUMM)</content > Platelet mean 8.0-11.0 <content Saint volume [Entitic styleCode="Bold Carl volume] in Blood ">Mean Platelet Medical by Automated Volume Center count </content>10.1 FL<content styleCode="Ital ics"> (8.0-11.0 FL)</content> Erythrocyte 11.5-14. <content Saint distribution 5 styleCode="Bold Carl width [Ratio] by ">Red Cell Medical Automated count Distribution Center Width </content>14.0 %<content styleCode="Ital ics"> (11.5-14.5 %)</content> Erythrocyte mean 32.0-37. <content Saint corpuscular 0 styleCode="Bold Carl hemoglobin ">Mean Corpus. Medical concentration Hgb Center [Mass/volume] by Concentration Automated count (MCHC) </content>32.8 G/DL<content styleCode="Ital ics"> (32.0-37.0 G/DL)</content> UNK 0 <content Saint styleCode="Bold Carl ">Nucleated Red Medical Blood Cell Center </content>0.0 /100<content styleCode="Ital ics"> (0 /100)</content> UNK 0.0 <content Saint styleCode="Bold Carl ">Nucleated Red Medical Blood Cell Center Count </content>0.00 KCUMM<content styleCode="Ital ics"> (0.0 KCUMM)</content > ID Date Data Source [id number] 03/30/2019 10:10:00 AM [facility] -0500 Name Value Range Interpretation Code Description Data Cheri rce(s) Supporting Document(s ) UNK 4.2-5.8 Above high normal <content [place] [facility] styleCode="Bold" Medical Cente r >Hemoglobin A1C </content>6.1 % H<content styleCode="Itali cs"> (4.2-5.8 %)</content> ID Date Data Source [id number] 01/30/2019 08:50:00 AM [facility] 0 Name Value Range Interpretation Description Data Sup porting Code Source(s) Document(s ) Color of Urine YELLOW <content Saint styleCode="[place] d">Color, Medical Urine Center </content>YELL OW <content styleCode="Trinity lics"> (YELLOW )</content> Glucose NEGATIVE <content Saint [Mass/volume] styleCode="[place] in Urine by d">Urine Medical Test strip Glucose Center </content>NEGA TIVE MG/DL<content styleCode="Trinity lics"> (NEGATIVE MG/DL)</conten t> UNK CLEAR <content Saint styleCode="[place] d">Urine Medical Clarity Center </content>THONY R <content styleCode="Trinity lics"> (CLEAR )</content> UNK NEGATIVE <content Saint styleCode="[place] d">Urine Medical Bilirubin Center </content>NEGA TIVE <content styleCode="Trinity lics"> (NEGATIVE )</content> Ketones NEGATIVE <content Saint [Mass/volume] styleCode="[place] in Urine by d">Urine Medical Test strip Ketone Center </content>NEGA TIVE MG/DL<content styleCode="Trinity lics"> (NEGATIVE MG/DL)</conten t> Hemoglobin NEGATIVE <content Saint [Presence] in styleCode="[place] Urine by Test d">Urine Blood Medical strip </content>TRAC Center E <content styleCode="Trinity lics"> (NEGATIVE )</content> Specific 1.015-1.02 <content Saint gravity of 5 styleCode="[place] Urine by Test d">Urine Medical strip Specific Center [place] </content>1.02 5 <content styleCode="Trinity lics"> (1.015-1.025 )</content> pH of Urine by 4.5-8.0 <content Saint Test strip styleCode="[place] d">Urine pH Medical </content>5.5 Center <content styleCode="Trinity lics"> (4.5-8.0 )</content> Protein NEGATIVE <content Saint [Mass/volume] styleCode="[place] in Urine by d">Urine Medical Test strip Protein Center </content>NEGA TIVE MG/DL<content styleCode="Trinity lics"> (NEGATIVE MG/DL)</conten t> Urobilinogen 0.2-1.0 <content Saint [Units/volume] styleCode="[place] in Urine by d">Urine Medical Test strip Urobilinogen Center </content>0.2 MG/DL<content styleCode="Trinity lics"> (0.2-1.0 MG/DL)</conten t> Nitrite NEGATIVE <content Saint [Presence] in styleCode="[place] Urine by Test d">Urine Medical strip Nitrite Center </content>NEGA TIVE <content styleCode="Trinity lics"> (NEGATIVE )</content> Leukocyte NEGATIVE <content Saint esterase styleCode="[place] [Presence] in d">Urine Medical Urine by Test Leukocyte Center strip </content>NEGA TIVE <content styleCode="Trinity lics"> (NEGATIVE )</content> UNK NONE SEEN <content Saint styleCode="[place] d">Epithelial Medical Cell Center </content>0-2 HPF<content styleCode="Trinity lics"> (NONE SEEN HPF)</content> UNK 0-3 <content Saint styleCode="[place] d">Urine Red Medical Blood Cell Center </content>0-3 HPF<content styleCode="Trinity lics"> (0-3 HPF)</content> ID Date Data Source Microbiology.[id number] 01/30/2019 08:50:00 AM EST [facility] 500 Name Value Range Interpretation Code Description Data Cheri rce(s) Supporting Document(s ) UNK <item><content [facility] styleCode="Bold">C Medical Leo ter ulture Status </content>
<ta ble><tbody><tr><td >Specimen Number:</td><td>[id number]</td></tr>< tr><td>Sample Collection Date/Time: </td><td> 9 8:50 AM</td></tr><tr><t d>Specimen Source:</td><td>UR INE BLADDER</td></tr>< tr><td>Culture Status:</td><td>Fi nal </td></tr><tr><td> Culture Report:</td><td>NO FURTHER WORKUP </td></tr><tr><td> Urine Culture:</td><td>C ollection Plate Date: 01/30/2019 16:46 </td></tr><tr><td> Organism 1:</td><td>VIRIDAN S STREPTOCOCCUS GROUP </td></tr></tbody> </table>
<tabl e border="2"><tbody> <tr><td></td><td>1 </td></tr><tr><td> Comment</td><td></ td></tr><tr><td>Re sult Value</td><td>MALIK DANS STREPTOCOCCUS GROUP </td></tr><tr><td> Result Status</td><td>Fin al Result</td></tr><t r><td></td><td></t d></tr></tbody></t able></item> UNK <item><content [facility] styleCode="Bold">C Medical [facility] Report </content>
<ta ble><tbody><tr><td >Specimen Number:</td><td>[id number]</td></tr>< tr><td>Sample Collection Date/Time: </td><td> 9 8:50 AM</td></tr><tr><t d>Specimen Source:</td><td>UR INE BLADDER</td></tr>< tr><td>Urine Culture:</td><td>C ollection Plate Date: 01/30/2019 16:46 </td></tr><tr><td> Culture Status:</td><td>Fi nal </td></tr><tr><td> Culture Report:</td><td>NO FURTHER WORKUP </td></tr><tr><td> Organism 1:</td><td>VIRIDAN S STREPTOCOCCUS GROUP </td></tr></tbody> </table>
<tabl e border="2"><tbody> <tr><td></td><td>1 </td></tr><tr><td> Comment</td><td></ td></tr><tr><td>Re sult Value</td><td>MALIK DANS STREPTOCOCCUS GROUP </td></tr><tr><td> Result Status</td><td>Fin al Result</td></tr><t r><td></td><td></t d></tr></tbody></t able></item> ID Date Data Source Microbiology.[id number] 01/05/2019 04:53:00 PM EDT [facility] 400 Name Value Range Interpretation Description Data Sup porting Code Source(s) Document(s ) UNK <item><content Saint styleCode="[facility] d">Culture Medical Report Center </content><br/ ><table><tbody ><tr><td>Speci men Number:</td><t d>[id number]</t d></tr><tr><td >Sample Collection Date/Time: </td><td>01/05 4:53 PM</td></tr><t r><td>Specimen Source:</td><t d>THROAT</td>< /tr><tr><td>Cu lture Report:</td><t d>NEGATIVE FOR BETA HEMOLYTIC STREPTOCOCCI </td></tr><tr> <td>Throat-Nos e Culture:</td>< td>Collection Plate Date: 01/05/2019 17:14 </td></tr><tr> <td>Culture Status:</td><t d>Final </td></tr></tb ej></table></ item> UNK <item><content Saint styleCode="[place] d">Culture Medical Status Center </content><br/ ><table><tbody ><tr><td>Speci men Number:</td><t d>[id number]</t d></tr><tr><td >Sample Collection Date/Time: </td><td>01/05 4:53 PM</td></tr><t r><td>Specimen Source:</td><t d>THROAT</td>< /tr><tr><td>Th roat-Nose Culture:</td>< td>Collection Plate Date: 01/05/2019 17:14 </td></tr><tr> <td>Culture Status:</td><t d>Final </td></tr><tr> <td>Culture Report:</td><t d>NEGATIVE FOR BETA HEMOLYTIC STREPTOCOCCI </td></tr></tb ej></table></ item> Streptococcus NEGATIVE <item><content Saint pyogenes Ag styleCode="[place] [Presence] in d">Rapid Strep Medical Unspecified A Center specimen by </content><br/ Immunoassay ><table><tbody ><tr><td>Speci men Number:</td><t d>[id number]</t d></tr><tr><td >Sample Collection Date/Time: </td><td>01/05 4:53 PM</td></tr><t r><td>Specimen Source:</td><t d>THROAT</td>< /tr><tr><td>Ra pid Strep A:</td><td>NEG ATIVE </td></tr></tb ej></table></ item> Procedure Social History Code Duration Value Status Description Data Source(s ) Caffeine Use 12/07/2019 chocolate, 1 completed chocolate, 1 cup NEXT GEN ([facility] Details 12:00:00 AM EDT cup [facility]) Smoking 12/07/2019 Unknown if completed Unknown if ever NEXTGEN ( [facility] 12:00:00 AM EDT ever smoked smoked [facility]) Caffeine Use 10/16/2019 completed chocolate, 1 cup NEXTGE N ([facility] Details 12:00:00 AM EDT [facility]) Vital Signs ID Date Data Source UNK Name Value Range Interpretation Code Description Data Source(s) Oxygen saturation 97 % 97 % NEXTGEN ([facility] in Arterial [facility] by Pulse oximetry [place]) Body mass index 39.50 kg/m2 [facility] 39.50 [facility] (BMI) [Ratio] [facility]) Respiratory rate 18 /min 18 /min [facility] ([facility]) Body temperature 36.44 Althea 36.44 Althea [facility] ([facility]) Heart rate 87 /min 87 /min [facility] ([facility]) Diastolic blood 61 mm[Hg] 61 mm[Hg] [facility] ( [facility]) Systolic blood 97 mm[Hg] 97 mm[Hg] [facility] (S aint pressure [facility]) Body weight 85.729 kg 85.729 kg [facility] ([facility]) Body height 147.32 cm 147.32 cm [facility] ([facility]) Oxygen saturation 97 % 97 % [facility] in Arterial [facility] by Pulse oximetry [place]) Body mass index 39.50 kg/m2 Overweight 39.50 kg/m2 [facility]EXT[facility] ([facility] (BMI) [Ratio] [facility]) Respiratory rate 19 /min 19 /min [facility] ([facility]) Body temperature 36.44 Althea 36.44 Althea [facility] ([facility]) Heart rate 93 /min 93 /min [facility] ([facility]) Diastolic blood 58 mm[Hg] 58 mm[Hg] [facility] ( [facility]) Systolic blood 98 mm[Hg] 98 mm[Hg] [facility] (S aint pressure [facility]) Body weight 85.729 kg 85.729 kg [facility] ([facility]) Body height 147.32 cm 147.32 [facility]) Oxygen saturation 97 % 97 % [facility] ([facility] in Arterial [facility] by Pulse oximetry Center) Body mass index 38.58 kg/m2 Overweight 38.58 kg/m2 [facility]EXT[facility] ([facility] (BMI) [Ratio] [facility]) Respiratory rate 20 /min 20 /min [facility] ([facility]) Body temperature 36.78 Althea 36.78 Althea [facility] ([facility]) Heart rate 83 /min 83 /min [facility] ([facility]) Diastolic blood 81 mm[Hg] 81 mm[Hg] [facility] ( [facility]) Systolic blood 96 mm[Hg] 96 mm[Hg] [facility]EXT[facility] (S nt pressure [facility]) Body weight 83.733 kg 83.733 [facility]) Body height 147.32 cm 147.32 [facility]) Oxygen saturation 98 % 98 % [facility]EXT[facility] ([facility] in Arterial [facility] by Pulse oximetry Center) Body mass index 38.25 kg/m2 Overweight 38.25 kg/m2 [facility] ([facility] (BMI) [Ratio] [facility]) Respiratory rate 20 /min 20 /min [facility] ([facility]) Body temperature 36.56 Althea 36.56 Althea [facility]) Heart rate 94 /min 94 /min [facility] ([facility]) Diastolic blood 58 mm[Hg] 58 mm[Hg] [facility] ( [facility]) Systolic blood 99 mm[Hg] 99 mm[Hg] [facility]EXT[facility] (S aint pressure [facility]) Body weight 83.007 kg 83.007 [facility]) Body height 147.32 cm 147.32 cm [facility]) Oxygen saturation 98 % 98 % [facility]EXT[facility] ([facility] in Arterial [facility] by Pulse oximetry Center) Body mass index 37.83 kg/m2 Overweight 37.83 kg/m2 [facility]EXT[facility] ([facility] (BMI) [Ratio] [facility]) Respiratory rate 19 /min 19 /min [facility] ([facility]) Body temperature 36.61 Althea 36.61 Althea [facility] ([facility]) Heart rate 89 /min 89 /min [facility] ([facility]) Diastolic blood 59 mm[Hg] 59 mm[Hg] [facility]EXT[facility] ( [facility] pressure [facility]) Systolic blood 94 mm[Hg] 94 mm[Hg] [facility] ([facility]) Body weight 82.100 kg 82.100 [facility]) Body height 147.32 cm 147.32 cm [facility] ([facility]) Oxygen saturation 96 % 96 % [facility]EXT[facility] ([facility] in Arterial blood [facility] by Pulse oximetry Center) Body mass index 39.54 kg/m2 Overweight 39.54 kg/m2 [facility]EXT[facility] ([facility] (BMI) [Ratio] [facility]) Respiratory rate 18 /min 18 /min [facility] ([facility]) Body temperature 36.50 Althea 36.50 Althea [facility]) Heart rate 95 /min 95 /min [facility] ([facility]) Diastolic blood 80 mm[Hg] 80 mm[Hg] [facility] ( [facility] pressure [facility]) Systolic blood 120 mm[Hg] 120 mm[Hg] [facility]S [facility]) Body weight 85.820 kg 85.820 kg [facility]) Body height 147.32 cm 147.32 cm [facility] ([facility]) Oxygen saturation 100 % 100 % NEXTGEN ([facility] in Arterial [facility] by Pulse oximetry Center) Body mass index 39.92 kg/m2 Overweight 39.92 kg/m2 [facility]EXT[facility] ([facility] (BMI) [Ratio] [facility]) Respiratory rate 20 /min 20 /min [facility]) Body temperature 36.78 Althea 36.78 Althea [facility] ([facility]) Heart rate 99 /min 99 /min [facility] ([facility]) Diastolic blood 57 mm[Hg] 57 mm[Hg] [facility]EXT[facility] ( [facility]) Systolic blood 98 mm[Hg] 98 mm[Hg] NEXT[facility] (S aint [facility]) Body weight 86.636 kg 86.636 [facility]) Body height 147.32 cm 147.32 cm [facility]) Oxygen saturation 95 % 95 % NEXTGEN ([facility] Arterial [facility] by Pulse oximetry Center) Body mass index 40.34 kg/m2 Overweight 40.34 kg/m2 [facility]EXT[facility] ([facility] (BMI) [Ratio] [facility]) Respiratory rate 18 /min 18 /min [facility] ([facility]) Body temperature 36.33 Althea 36.33 Althea [facility] ([facility]) Heart rate 100 /min 100 /min [facility]) Diastolic blood 75 mm[Hg] 75 mm[Hg] [facility] ( [facility]) Systolic blood 119 mm[Hg] 119 mm[Hg] [facility] (S [facility]) Body weight 87.543 kg 87.543 kg [facility]) Body height 147.32 cm 147.32 cm [facility] ([facility]) Oxygen saturation 96 % 96 % NEXTGEN ([facility] in Arterial [facility] by Pulse oximetry Center) Body mass index 39.71 kg/m2 Overweight 39.71 kg/m2 [facility]EXT[facility] ([facility] (BMI) [Ratio] [facility]) Res[facility] rate 18 /min 18 /[facility] Body temperature 36.78 Althea 36.78 Althea [facility] Heart rate 94 /min 94 /min [facility] ([facility]) Diastolic blood 67 mm[Hg] 67 mm[Hg] [facility] ( [facility]) Systolic blood 103 mm[Hg] 103 mm[Hg] [facility]) Body weight 86.183 kg 86.183 kg [facility]) Body height 147.32 cm 147.32 cm [facility]) Oxygen saturation 94 % 94 % [facility] ([facility] in Arterial blood [facility] by Pulse oxim[facility]) Body mass index 39.29 kg/m2 Overweight 39.29 kg/m2 [facility] ([facility] (BMI) [Ratio] [facility]) Respiratory rate 18 /min 18 /min [facility] ([facility]) Body temperature 36.61 Althea 36.61 Althea [facility] ([facility]) Heart rate 85 /min 85 /min [facility] ([facility]) Diastolic blood 61 mm[Hg] 61 mm[Hg] [facility] Systolic blood 102 mm[Hg] 102 mm[Hg] [facility] ([facility] nt [facility]) Body weight 85.275 kg 85.275 kg [facility]) Body height 147.32 cm 147.32 cm [facility]) Oxygen saturation 96 % 96 % [facility] ([facility] in Arterial blood [facility]) Body mass index 39.29 kg/m2 Overweight 39.29 kg/m2 [facility] ([facility] ([facility]) [Ratio] [facility]) Respiratory rate 18 /min 18 /min [facility] ([facility]) Body temperature 36.56 Althea 36.56 Althea [facility] ([facility]) Heart rate 84 /min 84 /min [facility] ([facility]) Diastolic blood 61 mm[Hg] 61 mm[Hg] [facility] ( [facility] Systolic blood 106 mm[Hg] 106 mm[Hg] [facility] ([facility]) Body weight 85.275 kg 85.275 kg [facility]) Body height 147.32 cm 147.32 cm [facility] ([facility]) Oxygen saturation 99 % 99 % [facility] ([facility] in Arterial blood [facility]) Body mass index 39.50 kg/m2 Overweight 39.50 kg/m2 [facility] ([facility] (BMI) [Ratio] [facility]) Respiratory rate 18 /min 18 /min [facility] ([facility]) Body temperature 36.59 Althea 36.59 Althea [facility]) Heart rate 96 /min 96 /min [facility] ([facility]) Diastolic blood 77 mm[Hg] 77 mm[Hg] [facility] ( [facility] pressure [facility]) Systolic blood 111 mm[Hg] 111 mm[Hg] [facility] pressure [facility]) Body weight 85.729 kg 85.729 kg [facility]) Body height 147.32 cm 147.32 cm [facility] ([facility]) Patient Treatment Plan of Care Planned Activity Planned Date Details Description Data Source (s) rizatriptan 10 MG Oral 12/07/2019 NEXT[facility] EN ([facility] Tablet 12:00:00 AM [facility]) Vitamin B 12 1 MG Oral 11/21/2019 [facility] EN ([facility] Tablet 12:00:00 AM [facility]) Cyclobenzaprine 10/24/2019 [facility] (Christiano nt hydrochloride 5 MG Oral 12:00:[address] [facility]) Bisacodyl 5 MG Delayed 10/24/2019 [facility]EXT[facility] EN ([facility] Release Oral Tablet 12:00:00 AM [facility]) meloxicam 15 MG Oral Tablet 10/24/2019 [facility] ([facility] 12:00:00 AM [facility]) Famotidine 20 MG Oral 10/24/2019 NEXTGE N ([facility] Tablet 12:00:00 AM [facility]) rizatriptan 10 MG 10/24/2019 [facility] (S aint Disintegrating Oral Tablet 12:00:00 AM [facility]) Nortriptyline 25 MG Oral 10/24/2019 NEX TGEN ([facility] Capsule 12:00:00 AM [facility]) POLYETHYLENE GLYCOL 3350 08/22/2019 NEX TGEN ([facility] 142 MG/ML Oral Solution 12:00:00 AM [facility] [Miralax] Carbon) meloxicam 15 MG Oral Tablet 08/22/2019 [facility] ([facility] 12:00:00 AM [facility]) Famotidine 20 MG Oral 08/22/2019 NEXTGE N ([facility] Tablet 12:00:00 AM [facility]) [place] Saline Gel nasal spray 08/22/2019 N EXTGEN ([facility] 12:00:00 AM [facility]) Fluconazole 150 MG Oral 08/13/2019 NEXT GEN ([facility] Tablet 12:00:00 AM [facility]) Hydrocortisone 25 MG/ML 08/13/2019 NEXT GEN ([facility] Topical Cream 12:00:00 AM [facility]) Famotidine 20 MG Oral 04/26/2019 NEXTGE N ([facility] Tablet 12:00:00 AM [facility]) meloxicam 15 MG Oral Tablet 04/26/2019 [facility] ([facility] 12:00:00 AM [facility]) Naproxen 500 MG Oral Tablet 03/29/2019 [facility] ([facility] 12:00:00 AM [facility]) benzonatate 200 MG Oral 03/29/2019 NEXT GEN ([facility] Capsule 12:00:00 AM [facility]) humidifiers 03/29/2019 NEXT[facility] ([facility] 12:00:00 AM [facility]) [place] Saline Gel nasal spray 03/29/2019 N EXTGEN ([facility] 12:00:00 AM [facility]) Hydrocortisone 25 MG/ML 03/29/2019 NEXT GEN ([facility] Topical Cream 12:00:00 AM [facility]) Clotrimazole 10 MG/ML 03/12/2019 NEXTGE N ([facility] Topical Cream 12:00:00 AM [facility]) Hydrocortisone 25 MG/ML 01/30/2019 NEXT GEN ([facility] Topical Cream 12:00:00 AM [facility]) POLYETHYLENE GLYCOL 3350 10/03/2018 NEX TGEN ([facility] 142 MG/ML Oral Solution 12:00:00 AM [facility] [Miralax] Carbon) Ibuprofen 600 MG Oral 07/18/2018 NEXTGE N ([facility] Tablet 12:00:00 AM [facility]) rizatriptan 10 MG 02/06/2018 NEXTGEN (S aint Disintegrating Oral Tablet 12:00:00 AM [facility]) rizatriptan 10 MG Oral 10/03/2017 NEXTG EN ([facility] Tablet 12:00:00 AM [facility]) Acetaminophen 300 MG / 07/20/2017 NEXTG EN ([facility] butalbital 50 MG / Caffeine 12:00:00 AM [facility] 40 MG Oral Capsule Carbon) [Fioricet] Clonidine Hydrochloride 0.1 05/09/2017 [facility]EXT[facility] ([facility] MG Oral Tablet 12:00:00 AM [facility] Nortriptyline 25 MG Oral 03/01/2017 NEX TGEN ([facility] Capsule 12:00:00 AM [facility])
== END | disposition home or self-care (01) ==
LOC: FMAMMOTONE 10:20
PROVIDERS: ATTEND Nurse Practitioner Family
PROC: 0HBU3ZX Excision of Left Breast, Percutaneous Approach, Diagnostic (ICD-10-PCS; principal; 2020-01-03)
DX: N63.22 Unspecified lump in the left breast, upper inner quadrant (principal)
CPT/HCPCS: 19081

== ENCOUNTER 2020-05-27 23:32 | Emergency (ER) | payer OTHER ==
[2020-05-27 23:56] VITALS: BP 121/61; PULSE 97; TEMP 97.7; BMI 33.2
[2020-05-28] MEDS ORDERED: SODIUM CHLORIDE 1,000 ML IV STA (00:10)
[2020-05-28] MEDS ORDERED: FAMOTIDINE 20 MG/50 ML IVPB 20 MG/50 ML MG IVPB ONE ×2 (00:10→01:12)
[2020-05-28] MEDS ORDERED: METOCLOPRAMIDE HCL INJECTION 10 MG/2 ML VIAL IVPB ONE (00:10)
[2020-05-28] MEDS ORDERED: METOCLOPRAMIDE HCL INJECTION 10 MG/2 ML VIAL ONE (01:12)
[2020-05-28 01:25] LABS: BASO % 0.2 % (0-2.0); EOS % 0.1 % (0-4.5); HEMATOCRIT 37.4 % (32.4-45.2); HEMOGLOBIN 11.9 GM/dL (10.7-15.3); LYMPH % 15.9 % (8-40); MCH 25.3 pg (25.7-33.7); MCHC 31.9 g/dl (32.0-36.0); MEAN CELL VOLUME 79.3 fl (80-96); MEAN PLT VOLUME 8.2 fl (7.5-11.1); MONO % 5.6 % (3.8-10.2); NEUT % 78.2 % (42.8-82.8); PLATELET COUNT 365 K/MM3 (134-434); RBC 4.71 M/mm3 (3.60-5.2); RDW 14.9 % (11.6-15.6); WHITE BLOOD COUNT 11.2 K/mm3 (4.0-10.0)
[2020-05-28 01:46] LABS: POTASSIUM 4.3 mmol/L (3.5-5.1)
[2020-05-28 01:49] LABS: BLOOD UREA NITROGEN 16.3 mg/dL (7-18); CALCIUM 9.2 mg/dL (8.5-10.1)
[2020-05-28 01:52] LABS: CREATININE 0.8 mg/dL (0.55-1.3)
[2020-05-28 01:54] LABS: BILIRUBIN,TOTAL 0.4 mg/dL (0.2-1); TOT PROT 8.5 g/dl (6.4-8.2)
[2020-05-28] MEDS ORDERED: ONDANSETRON 4 MG/2 ML VIAL IVPUSH ONE (01:56)
[2020-05-28] MEDS ORDERED: ONDANSETRON 4 MG/2 ML VIAL ONE (02:50)
[2020-05-28 04:15] LABS: URINE APPEARANCE CLEAR; URINE BILIRUBIN NEGATIVE (NEGATIVE); URINE COLOR YELLOW; URINE GLUCOSE (UA) NEGATIVE (NEGATIVE); URINE KETONE 3+ (NEGATIVE); URINE LEUK ESTERASE NEGATIVE (NEGATIVE); URINE NITRITE NEGATIVE (NEGATIVE); URINE PROTEIN NEGATIVE (NEGATIVE)
== END 2020-05-28 04:56 | disposition home or self-care (01) ==
LOC: JER 23:32
PROC: 3E033GC Introduction of Other Therapeutic Substance into Peripheral Vein, Percutaneous Approach (ICD-10-PCS; principal; 2020-05-27)
PROC: 3E033GC Introduction of Other Therapeutic Substance into Peripheral Vein, Percutaneous Approach (ICD-10-PCS; 2020-05-27)
PROC: 3E033GC Introduction of Other Therapeutic Substance into Peripheral Vein, Percutaneous Approach (ICD-10-PCS; 2020-05-27)
PROC: 3E0337Z Introduction of Electrolytic and Water Balance Substance into Peripheral Vein, Percutaneous Approach (ICD-10-PCS; 2020-05-27)
DX: R10.10 Upper abdominal pain, unspecified (principal); R51.9 Headache, unspecified; R11.2 Nausea with vomiting, unspecified
CPT/HCPCS: 36415; 76705-TC; 80053; 81003; 83690; 84484; 84703; 85025; 93005; 93010; 99285-25

== ENCOUNTER 2024-11-11 11:58 | Emergency (ER) | payer OTHER ==
[2024-11-11 12:05] VITALS: BP 108/62; PULSE 97; RESP 18; TEMP 98.1; BMI 32.4
[2024-11-11] MEDS ORDERED: METOCLOPRAMIDE HCL INJECTION 10 MG/2 ML VIAL ONE (12:55)
[2024-11-11] MEDS ORDERED: ACETAMINOPHEN INJECTION 100 ML ONE (12:55)
[2024-11-11] MEDS: SODIUM CHLORIDE 0.9% 500 ML INFUS.BAG IV ONE (13:00)
[2024-11-11] MEDS: ACETAMINOPHEN 1000 MG/100 ML BAG IVPB ONE (13:01)
[2024-11-11] MEDS: METOCLOPRAMIDE HCL INJECTION 10 MG/2 ML VIAL IVPUSH ONE (13:01)
[2024-11-11 13:10] LABS: BG HCT 46.0 % (32.4-45.2); VENOUS BASE EXCESS -0.8 mmol/L (-2-2); VENOUS O2 SATURATION 49.5 % (70-80); VENOUS PCO2 46.6 mmHg (38-52); VENOUS PH 7.352 (7.310-7.410)
[2024-11-11 13:12] LABS: ABSOLUTE IMMATURE GRANULOCYTES 0.02 x10^3/uL (0.0-0.031); BASOPHILS # 0.02 x10^3/uL (0.01-0.08); EOSINOPHIL % 0.9 % (0.7-5.8); EOSINOPHILS # 0.07 x10^3/uL (0.04-0.36); MCHC 32.0 g/dl (32.2-35.5); MEAN CELL VOLUME 87.0 fl (79.4-94.8); MEAN PLT VOLUME 9.4 fl (9.4-12.3); MONOCYTE # 0.61 x10^3/uL (0.24-0.86); MONOCYTE % 7.5 % (4.7-12.5); RDW 12.5 % (12.2-17.1)
[2024-11-11 13:32] LABS: GLUCOSE,RANDOM 94.0 mg/dL (74-106); TOT PROT 8.1 g/dl (6.4-8.2)
[2024-11-11 13:34] LABS: CO2 25.0 mmol/L (21-32)
[2024-11-11 13:35] LABS: ALK PHOS 102.0 U/L (40-150)
[2024-11-11 13:38] LABS: CREATININE 0.76 mg/dL (0.55-1.3); SGOT/AST 28.0 U/L (5-34); SGPT/ALT 25.0 U/L (0-55)
[2024-11-11 13:47] LABS: HCV DIAGNOSTIC IN-HOUSE W/RFLX NON-REACTIVE (NONREACTIVE)
[2024-11-11 13:48] LABS: HIV INTERPRETATION NEGATIVE (NEGATIVE)
== END 2024-11-11 14:17 | disposition home or self-care (01) ==
LOC: JER 11:58
PROC: 3E033NZ Introduction of Analgesics, Hypnotics, Sedatives into Peripheral Vein, Percutaneous Approach (ICD-10-PCS; principal; 2024-11-11)
PROC: 3E033GC Introduction of Other Therapeutic Substance into Peripheral Vein, Percutaneous Approach (ICD-10-PCS; 2024-11-11)
DX: K52.9 Noninfective gastroenteritis and colitis, unspecified (principal); R11.10 Vomiting, unspecified; R10.11 Right upper quadrant pain; R10.13 Epigastric pain; T78.1XXA Other adverse food reactions, not elsewhere classified, initial encounter
CPT/HCPCS: 36415; 76705-TC; 80053; 82010; 82550; 82803; 83690; 83735; 84484; 84703; 85025; 86803; 87389; 93005; 93010; 99285-25